=== PATIENT | male | born 1955 | race Caucasian/White ===

== ENCOUNTER 2016-12-24 12:33 | Inpatient (IN) | payer OTHER ==
[~2016-12-24] VITALS: Ht 184.2 cm; Wt 106.4 kg
[2016-12-24 12:51] VITALS: BP 144/68; PULSE 71; RESP 15; TEMP 97.9; O2SAT 95
[2016-12-24] MEDS ORDERED: CLON0.1T PO (13:18)
[2016-12-24] MEDS ORDERED: NOVOLOGP2 SQ (13:18)
[2016-12-24] MEDS ORDERED: AMLO10TA2 PO (13:18)
[2016-12-24] MEDS ORDERED: CALC600T64 (13:18)
[2016-12-24] MEDS ORDERED: LEVO25TA4 PO (13:18)
[2016-12-24] MEDS ORDERED: HYDR-3801 PO (13:18)
[2016-12-24] MEDS ORDERED: INSU1INJ18 SQ (13:18)
[2016-12-24] MEDS ORDERED: CARV25TA PO (13:18)
[2016-12-24] MEDS ORDERED: CARB200T PO (13:18)
[2016-12-24] MEDS ORDERED: REFR0.5D9 EACH EYE (13:18)
[2016-12-24] MEDS ORDERED: LISI40TA PO (13:18)
--- NOTE | 2016-12-24 13:24 | PD ---
HPI Chief Complaint: Dizziness Time Seen by Provider: 13:23 Travel History International Travel<30 days: No Contact w/Intl Traveler<30days: No Traveled to known affect area: No History of Present Illness HPI 61 YO M with PMH of DM, HTN presents to the ED by EMS for evaluation of "months long" history of dizziness, gait disturbance. He describes this as constant, endorses blurred vision and decreased hearing bilaterally. No alleviating or exacerbating factors reported. He denies headache, fever, chills, nausea, vomiting, chest pain, palpitations. Patient states that he fell secondary to his gait disturbance and has a fracture of the left proximal humerus. He states that he smokes marijuana daily and has been abstaining since he came to [place]. PFSH Past Medical History Cerebrovascular Accident: Yes (a couple this year) Diabetes: Yes Patient Takes Glucophage: No Hypertension: Yes Past Surgical History Genitourinary Surgery: Yes (right kindey removal(CA)) Social History Alcohol Use: No Tobacco Use: No Substance Use: Yes (occasional marijuana) Allergies-Medications (Allergen,Severity, Reaction): Coded Allergies: Ibuprofen (Verified Allergy, Severe, 12/24/16) i swell up Reported Meds & Prescriptions Reported Meds & Active Scripts Active Reported Hydralazine (Hydralazine HCl) 100 Mg Tab 100 Mg PO BID Take with meals Amlodipine (Amlodipine Besylate) 10 Mg Tab 10 Mg PO DAILY Clonidine (Clonidine HCl) 0.1 Mg Tab 0.1 Mg PO BID Lisinopril 40 Mg Tab 40 Mg PO DAILY Levothyroxine (Levothyroxine Sodium) 25 Mcg Tab 25 Mcg PO DAILY Novolog Inj (Insulin Aspart) 1,000 Unit/10 Ml Vial 0 SQ DIRECTED Sliding Scale as directed. Carvedilol 25 Mg Tab 25 Mg PO BID Carbamazepine 200 Mg Tab 200 Mg PO BID Calcium 600 + Vit D Tablet (Calcium Carbonate/Vitamin D3) 1 Each Tablet Refresh Plus Unit-Dose 0.5% Opth (Carboxymethylcellulose Sodium 0.5% Opth) 0.5% Drops 1 Drop EACH EYE QID Basaglar Kwikpen (Insulin Glargine) 100 Unit/Ml Pen 1 Units SQ DAILY Review of Systems Except as stated in HPI: all other systems reviewed are Neg Physical Exam Narrative GENERAL: Well-nourished, well-developed pleasant white male in no acute distress. SKIN: Focused skin assessment warm/dry. HEAD: Normocephalic. EYES: No scleral icterus. No injection or drainage. PERRLA. EOMI. NECK: Supple, trachea midline. No JVD or lymphadenopathy. CARDIOVASCULAR: Regular rate and rhythm without murmurs, gallops, or rubs. RESPIRATORY: Breath sounds clear and equal bilaterally. No accessory muscle use. GASTROINTESTINAL: Abdomen soft, non-tender, nondistended. Active bowel sounds. MUSCULOSKELETAL: No cyanosis, or edema. Left arm is in a long-arm cast and splint NEUROLOGICAL: Awake and alert. Cranial nerves II through XII intact. Motor and sensory grossly within normal limits. Five out of 5 muscle strength in all muscle groups. Normal speech. No pronator drift. No ataxia. BACK: Nontender without obvious deformity. No CVA tenderness. Data Data Last Documented VS Vital Signs Date Time Temp Pulse Resp B/P Pulse Ox O2 Delivery O2 Flow Rate FiO2 12/24/16 18:20 74 17 165/85 94 Room Air 12/24/16 12:51 97.9 Orders Complete Blood Count With Diff (12/24/16 13:18) Comprehensive Metabolic Panel (12/24/16 13:18) Iv Access Insert/Monitor (12/24/16 13:18) Urinalysis - C+S If Indicated (12/24/16 13:38) Orthostatic Blood Pressure (12/24/16 13:38) Electrocardiogram (12/24/16 13:38) Magnesium (Mg) (12/24/16 13:38) Ckmb (Isoenzyme) Profile (12/24/16 13:38) Troponin I (12/24/16 13:38) Act Partial Throm Time (Ptt) (12/24/16 13:38) Prothrombin Time / Inr (Pt) (12/24/16 13:38) Chest, Single Ap (12/24/16 13:38) Ct Brain W/O Iv Contrast(Rout) (12/24/16 13:38) Ecg Monitoring (12/24/16 13:38) Oximetry (12/24/16 13:38) Meclizine (Antivert) (12/24/16 13:45) Sodium Chloride 0.9% Flush (Ns Flush) (12/24/16 13:45) Mri Brain W&W/O Contrast (12/24/16 15:26) Lorazepam Inj (Ativan Inj) (12/24/16 17:30) Gadodiamide Pf Inj (Omniscan Pf Inj) (12/24/16 18:08) Sodium Chlor 0.9% 1000 Ml Inj (Ns 1000 M (12/24/16 18:30) Humerus (Min 2vws) (12/24/16 19:28) Diet Heart Healthy (12/25/16 Dinner) Consult Orthopedic (12/24/16 ) Consult Neurology (12/24/16 ) Admit Order (Ed Use Only) (12/24/16 20:39) Labs Laboratory Tests Test 12/24/16 12/24/16 12/24/16 13:20 14:12 16:30 White Blood Count 10.1 TH/MM3 Red Blood Count 4.04 MIL/MM3 Hemoglobin 11.5 GM/DL Hematocrit 33.9 % Mean Corpuscular Volume 83.9 FL Mean Corpuscular Hemoglobin 28.4 PG Mean Corpuscular Hemoglobin 33.8 % Concent Red Cell Distribution Width 14.0 % Platelet Count 264 TH/MM3 Mean Platelet Volume 8.5 FL Neutrophils (%) (Auto) 65.4 % Lymphocytes (%) (Auto) 20.0 % Monocytes (%) (Auto) 11.5 % Eosinophils (%) (Auto) 2.4 % Basophils (%) (Auto) 0.7 % Neutrophils # (Auto) 6.6 TH/MM3 Lymphocytes # (Auto) 2.0 TH/MM3 Monocytes # (Auto) 1.2 TH/MM3 Eosinophils # (Auto) 0.2 TH/MM3 Basophils # (Auto) 0.1 TH/MM3 CBC Comment DIFF FINAL Differential Comment Sodium Level 137 MEQ/L Potassium Level 4.0 MEQ/L Chloride Level 106 MEQ/L Carbon Dioxide Level 23.4 MEQ/L Anion Gap 8 MEQ/L Blood Urea Nitrogen 29 MG/DL Creatinine 1.35 MG/DL Estimat Glomerular Filtration 54 ML/MIN Rate Random Glucose 167 MG/DL Calcium Level 8.8 MG/DL Total Bilirubin 0.3 MG/DL Aspartate Amino Transf 24 U/L (AST/SGOT) Alanine Aminotransferase 55 U/L (ALT/SGPT) Alkaline Phosphatase 94 U/L Total Protein 6.2 GM/DL Albumin 2.8 GM/DL Prothrombin Time 10.7 SEC Prothromb Time International 1.0 RATIO Ratio Activated Partial 25.3 SEC Thromboplast Time Magnesium Level 2.0 MG/DL Total Creatine Kinase 66 U/L Troponin I LESS THAN 0.02 NG/ML Urine Color YELLOW Urine Turbidity CLEAR Urine pH 5.5 Urine Specific [place] 1.020 Urine Protein 30 mg/dL Urine Glucose (UA) NEG mg/dL Urine Ketones NEG mg/dL Urine Occult Blood NEG Urine Nitrite NEG Urine Bilirubin NEG Urine Urobilinogen LESS THAN 2.0 MG/DL Urine Leukocyte Esterase NEG Urine RBC 1 /hpf Urine WBC LESS THAN 1 /hpf Microscopic Urinalysis Comment CULT NOT INDICATED MDM Medical Decision Making Medical Screen Exam Complete: Yes Emergency Medical Condition: Yes Differential Diagnosis TIA versus vertigo versus ischemic stroke versus hemorrhagic stroke versus A. fib versus other Narrative Course 61 YO M with PMH of DM, HTN presents to the ED for evaluation of "months long" history of dizziness, gait disturbance. He describes this as constant, endorses blurred vision and decreased hearing bilaterally. No alleviating or exacerbating factors reported. Patient states that he fell secondary to his gait disturbance and has a fracture of the left proximal humerus. He states that he smokes marijuana daily since the 1960s and has been abstaining since he came to [place]. Vitals reviewed. Physical exam is unremarkable. No focal neuro deficits. CBC: CBC 10.1. Hemoglobin 11.5. CMP: BUN 29, creatinine 1.35. INR 1.0. Magnesium 20. UA: No culture indicated. EKG rate 72, sinus rhythm. Normal intervals. Normal axis. No ST changes. Reviewed by Dr. Craft. Cardiac enzymes negative 1. Chest x-ray negative for acute pathology. X-ray left arm: CT brain: Low density area in the cerebellar hemispheres bilaterally. MRI: Multiple acute and subacute infarcts in the posterior circulation, both cerebellar hemispheres and left occipital lobe The patient is not a precise historian. He does have a MRI report dated 10/24/16 that is similar to today's MRI result. I discussed the patient with Dr. Craft and Dr. Lezama. They recommend admission for TIA with neuro consult. I will also have the orthopedist look at the humeral fracture while the patient's here. I spoke to Dr. Alejandro who agrees to accept the patient to the medicine service. Please see Medicine, Ortho and Neuro notes for disposition. Kori Hawthorne Dec 24, 2016 13:24
[2016-12-24 13:45] VITALS: BP_SYST 166; BP_SYST 168; BP_SYST 169; BP_DIAS 77; BP_DIAS 81; RESP 14; RESP 15
[2016-12-24] MEDS ORDERED: SODIUM CHLORIDE 0.9% FLUSH 10 ML FLUSH IVF PRN (13:45)
[2016-12-24] MEDS ORDERED: MECLIZINE HCL 25 MG TAB PO ONE (13:45)
[2016-12-24 13:51] LABS: AUTOMATED NEUTROPHIL # 6.6 TH/MM3 (1.8-7.7); BASOPHIL # 0.1 TH/MM3 (0-0.2); BASOPHIL % 0.7 % (0.0-2.0); EOSINOPHIL # 0.2 TH/MM3 (0-0.4); EOSINOPHIL % 2.4 % (0.0-4.0); HEMATOCRIT 33.9 % (39.0-51.0); HEMO FLAGS DIFF FINAL; MEAN CELL VOLUME 83.9 FL (80.0-100.0); MEAN CORPUSCULAR HEMOGLOBIN 28.4 PG (27.0-34.0); MEAN CORPUSCULAR HGB CONC 33.8 % (32.0-36.0); MONO % 11.5 % (0.0-8.0); NEUT % 65.4 % (16.0-70.0); PLATELET COUNT 264 TH/MM3 (150-450); RED BLOOD COUNT 4.04 MIL/MM3 (4.50-5.90); WHITE BLOOD COUNT 10.1 TH/MM3 (4.0-11.0)
[2016-12-24 14:11] LABS: ANION GAP 8 MEQ/L (5-15); AST (GOT) 24 U/L (15-37); BICARBONATE 23.4 MEQ/L (21.0-32.0); BLOOD UREA NITROGEN 29 MG/DL (7-18); CHLORIDE 106 MEQ/L (98-107); GLOMERULAR FILTRATION RATE 54 ML/MIN (>89); SODIUM (NA) 137 MEQ/L (136-145)
[2016-12-24 14:12] LABS: ALT (GPT) 55 U/L (12-78)
--- NOTE | 2016-12-24 14:14 | RADRPT ---
EXAM DATE/TIME: 12/24/2016 13:52 [facility] COMPARISON: No previous studies available for comparison. INDICATIONS : Palpitations. MEDICAL HISTORY : 3 strokes SURGICAL HISTORY : None. ENCOUNTER: Initial ACUITY: 1 day PAIN SCORE: 0/10 LOCATION: Bilateral chest FINDINGS: A single view of the chest demonstrates the lungs to be symmetrically aerated without evidence of mas s, infiltrate or effusion. The cardiomediastinal contours are unremarkable. Osseous structures are intact. CONCLUSION: No acute disease. Mehrdad Joshi MD FACR on December 24, 2016 at 14:11 Board Certified Radiologist. This report was verified electronically.
[2016-12-24 14:15] LABS: ALKALINE PHOSPHATASE 94 U/L (45-117); TOTAL BILIRUBIN ADULT 0.3 MG/DL (0.2-1.0)
[2016-12-24 14:33] LABS: APTT (PATIENT) 25.3 SEC (24.3-30.1); PROTHROMBIN TIME - PATIENT 10.7 SEC (9.8-11.6)
[2016-12-24 14:43] LABS: CREATINE KINASE 66 U/L (39-308)
--- NOTE | 2016-12-24 14:44 | RADRPT ---
EXAM DATE/TIME: 12/24/2016 14:28 [facility] COMPARISON: No previous studies available for comparison. INDICATIONS : Blurred vision and dizziness. RADIATION DOSE: 56.35 CTDIvol (mGy) MEDICAL HISTORY : Hypertension. SURGICAL HISTORY : None. ENCOUNTER: Initial ACUITY: 1 day PAIN SCALE: 0/10 LOCATION: cranial TECHNIQUE: Multiple contiguous axial images were obtained of the head. Using automated exposure control and adj ustment of the mA and/or kV according to patient size, radiation dose was kept as low as reasonably a chievable to obtain optimal diagnostic quality images. DICOM format image data is available electro nically for review and comparison. FINDINGS: CEREBRUM: The ventricles are normal for age. No evidence of midline shift, mass lesion, hemorrhage or acute in farction. There is a small old left lacunar infarct in the left basal ganglia. No extra-axial fluid c ollections are seen. POSTERIOR FOSSA: The mid brain is unremarkable. However there appears to be a low-density lesion in the right cerebell ar hemisphere and left cerebellar hemisphere. These may represent areas of old infarction. No definit e mass effect or midline shift is seen. The fourth ventricle is midline in position. EXTRACRANIAL: The visualized portion of the orbits is intact. SKULL: The calvaria is intact. No evidence of skull fracture. CONCLUSION: 1. There are low density areas in the cerebellar hemispheres bilaterally. These may represent old are as of infarction. There are no prior studies for comparison. Recommend MRI of the brain with and with out contrast for further evaluation. 2. There is an old left basal ganglia infarct. 3. No focal or acute intracranial hemorrhage. Jean Carlos Lee MD on December 24, 2016 at 14:39 Board Certified Radiologist. This report was verified electronically.
[2016-12-24 15:00] VITALS: BP 151/66; PULSE 71; RESP 15; O2SAT 94
[2016-12-24 16:00] VITALS: BP 150/79; PULSE 70; RESP 15; O2SAT 94
[2016-12-24 16:48] LABS: BLOOD, URINE NEG (NEG); COMMENT (UR) CULT NOT INDICATED; CULTURE IF INDICATED CULT NOT INDICATED; GLUCOSE,URINE NEG (NEG); KETONE, URINE NEG (NEG); NITRITE,URINE NEG (NEG); PH, URINE 5.5 (5.0-8.5); URINE COLOR YELLOW (YELLW/STRAW)
[2016-12-24] MEDS ORDERED: LORazepam 2 MG/ML VIAL IV PUSH ONE (17:30)
[2016-12-24] MEDS ORDERED: GADODIAMIDE PF 287 MG/ML 5 ML VIAL (for RAD MRI) IV ONE (18:08)
[2016-12-24 18:20] VITALS: BP 165/85; PULSE 74; RESP 17; O2SAT 94
[2016-12-24] MEDS ORDERED: SODIUM CHLOR 0.9% 1000 ML INJ 1,000 ML IV ONE (18:30)
--- NOTE | 2016-12-24 18:48 | RADRPT ---
EXAM DATE/TIME: 12/24/2016 17:47 [facility] COMPARISON: CT BRAIN W/O CONTRAST, December 24, 2016, 14:28. INDICATIONS : Dizziness. Fall this morning. CONTRAST: 22 cc Omniscan (gadodiamide) IV MEDICAL HISTORY : Diabetes mellitus type 2. Hypertension. SURGICAL HISTORY : Right kidney removed and right knee replacement. ENCOUNTER: Initial ACUITY: 1 day PAIN SCORE: 2/10 LOCATION: Head. TECHNIQUE: Multiplanar, multisequence MRI of the brain was performed both prior to and following the administrat ion of paramagnetic contrast. FINDINGS: There are multiple acute infarcts in the posterior circulation. These involve a large portion of the left cerebellar hemisphere. There are also smaller infarcts in the right cerebellar hemisphere and sm all infarcts in the left occipital lobe. No anterior circulation acute infarcts are identified. There is a remote lacunar infarct in left basal ganglia. No abnormal enhancing lesions are seen post contrast other than some mild enhancement associated with the areas of infarction. No mass effect or midline shift. CONCLUSION: 1. Multiple acute to subacute infarcts in the posterior circulation involving both cerebellar hemisph eres and the left occipital lobe. Areas of infarction have some subtle enhancement. No mass effect or shift. Remote lacunar infarct left basal ganglia. Michael Barreto MD on December 24, 2016 at 18:40 Board Certified Radiologist. This report was verified electronically.
--- NOTE | 2016-12-24 20:31 | RADRPT ---
EXAM DATE/TIME: 12/24/2016 19:58 [facility] COMPARISON: No previous studies available for comparison. INDICATIONS : Left arm pain , patient states that he fell and broke humerus. MEDICAL HISTORY : Hypertension. SURGICAL HISTORY : None. ENCOUNTER: Initial ACUITY: 1 day PAIN SCORE: 9/10 LOCATION: Left upper extremity FINDINGS: There is avulsion of the greater tuberosity with mild displacement. There is a slightly comminuted fr acture through the left humeral neck. The mid and distal humerus are intact. CONCLUSION: 1. Slightly comminuted and mildly displaced humeral neck fracture with avulsion of the greater tubero sity. Michael Barreto MD on December 24, 2016 at 20:26 Board Certified Radiologist. This report was verified electronically.
[2016-12-24] MEDS ORDERED: SODIUM CHLORIDE 0.9% FLUSH 5 ML FLUSH IV FLUSH PRN (20:45)
[2016-12-24] MEDS: SODIUM CHLORIDE 0.9% FLUSH 5 ML FLUSH IV FLUSH SCH (21:20)
[2016-12-24 21:22] VITALS: BP 175/78; PULSE 75; RESP 18; TEMP 98.1; O2SAT 99
[2016-12-25] VITALS (8 sets, daily range): BP systolic 179–217; BP diastolic 93–108; PULSE 68–84; RESP 17–18; TEMP 97.7–98.9; O2SAT 94–97
[2016-12-25] MEDS: MORPHINE SULFATE 8 MG/ML INJ IV PUSH PRN ×2 (01:57→06:44)
--- NOTE | 2016-12-25 02:48 | HHI.HP ---
[facility] Admission Diagnosis TIA, dizziness Diagnoses: Chief Complaint: dizziness Travel History International Travel<30 Days: No Contact w/Intl Traveler <30 Da: No Traveled to Known Affected Are: No History of Present Illness Written by CANDIDO Montague acting as scribe for [Javon] on 12/25/16 at 02: 27. 61 y/o male with a history of CVA x 3, HTN, DM, Hypothyroidism, kidney cancer and arthritis recently moved to [place] from [place] in November presented to the ED with complaints of falling at home due to dizziness. He states he was having trouble walking and having episode of dizziness and fell on his left arm 3-4 days ago. He was taking tramadol he had at home and the pain in his left arm did not get better and he continued to be weak and dizzy. He denies any other associated symptoms. Prior to the fall he did not have any chest pain, or sob. He does not take aspirin or anticoagulation since CVA. Denies any swelling or pain in his lower extremities since traveling to [place]. Patient PCP is at the [place] Review of Systems Constitutional: COMPLAINS OF: Dizziness, DENIES: Fever, Chills Respiratory: DENIES: Cough, Shortness of breath Cardiovascular: DENIES: Chest pain, Lower Extremity Edema Gastrointestinal: DENIES: Nausea, Vomiting Genitourinary: DENIES: Hematuria, Dysuria Musculoskeletal: COMPLAINS OF: Joint pain (left arm), DENIES: Back pain, Neck pain Integumentary: DENIES: Rash Hematologic/lymphatic: DENIES: Lymphadenopathy Immunologic/allergic: DENIES: Urticaria Neurologic: DENIES: Headache Past Family Social History Past Medical History CVA x3 Arthritis. HTN DM Asthma Kidney cancer Past Surgical History Right nephrectomy Right knee arthroplasty Reported Medications Reported Meds & Active Scripts Active Reported Hydralazine (Hydralazine HCl) 100 Mg Tab 100 Mg PO BID Take with meals Amlodipine (Amlodipine Besylate) 10 Mg Tab 10 Mg PO DAILY Clonidine (Clonidine HCl) 0.1 Mg Tab 0.1 Mg PO BID Lisinopril 40 Mg Tab 40 Mg PO DAILY Levothyroxine (Levothyroxine Sodium) 25 Mcg Tab 25 Mcg PO DAILY Novolog Inj (Insulin Aspart) 1,000 Unit/10 Ml Vial 0 SQ DIRECTED Sliding Scale as directed. Carvedilol 25 Mg Tab 25 Mg PO BID Carbamazepine 200 Mg Tab 200 Mg PO BID Calcium 600 + Vit D Tablet (Calcium Carbonate/Vitamin D3) 1 Each Tablet Refresh Plus Unit-Dose 0.5% Opth (Carboxymethylcellulose Sodium 0.5% Opth) 0.5% Drops 1 Drop EACH EYE QID Basaglar Kwikpen (Insulin Glargine) 100 Unit/Ml Pen 1 Units SQ DAILY Allergies: Coded Allergies: Ibuprofen (Verified Allergy, Severe, 12/24/16) i swell up Active Ordered Medications Current Medications Medications (Trade) Dose Ordered Sig/Niels Route Start Time Stop Time Status Last Admin (NS Flush) 2 ml BID IV FLUSH 12/24/16 21:00 12/24/16 21:20 (NS Flush) 2 ml UNSCH PRN IV FLUSH 12/24/16 20:45 (Morphine Inj) 2 mg Q3H PRN IV PUSH 12/25/16 02:00 12/25/16 01:57 Social History Tobacco use: Quit at age 27 Alcohol use: Denies Illicit drug use: Medical marijuana Physical Exam Vital Signs Vital Signs Date Time Temp Pulse Resp B/P Pulse Ox O2 Delivery O2 Flow Rate FiO2 12/25/16 01:33 97.7 77 18 201/93 97 12/24/16 21:22 98.1 75 18 175/78 99 Room Air 12/24/16 18:20 74 17 165/85 94 Room Air 12/24/16 16:00 70 15 150/79 94 Room Air 12/24/16 15:00 71 15 151/66 94 Room Air 12/24/16 13:45 73 15 166/81 75 14 168/77 77 15 169/81 12/24/16 12:58 76 15 96 Room Air 12/24/16 12:51 97.9 71 15 144/68 95 Physical Exam GENERAL: This is a well-nourished, well-developed patient, in no apparent distress. SKIN: No rashes, ecchymoses or lesions. Cool and dry. RUE splinted in sling HEAD: Atraumatic. Normocephalic. . EYES: Pupils equal round and reactive. ENT: Nose without bleeding, purulent drainage or septal hematoma. NECK: Trachea midline. No JVD or lymphadenopathy. CARDIOVASCULAR: Regular rate and rhythm without murmurs, gallops, or rubs. RESPIRATORY: Clear to auscultation. Breath sounds equal bilaterally. No wheezes , rales, or rhonchi. GASTROINTESTINAL: Abdomen soft, non-tender, nondistended. No hepato-splenomegaly , or palpable masses. No guarding. MUSCULOSKELETAL: RUE with edema and tenderness. No calf tenderness. NEUROLOGICAL: Awake and alert. Motor and sensory grossly within normal limits. Normal speech. Laboratory Laboratory Tests Test 12/24/16 12/24/16 12/24/16 13:20 14:12 16:30 White Blood Count 10.1 Red Blood Count 4.04 Hemoglobin 11.5 Hematocrit 33.9 Mean Corpuscular Volume 83.9 Mean Corpuscular Hemoglobin 28.4 Mean Corpuscular Hemoglobin 33.8 Concent Red Cell Distribution Width 14.0 Platelet Count 264 Mean Platelet Volume 8.5 Neutrophils (%) (Auto) 65.4 Lymphocytes (%) (Auto) 20.0 Monocytes (%) (Auto) 11.5 Eosinophils (%) (Auto) 2.4 Basophils (%) (Auto) 0.7 Neutrophils # (Auto) 6.6 Lymphocytes # (Auto) 2.0 Monocytes # (Auto) 1.2 Eosinophils # (Auto) 0.2 Basophils # (Auto) 0.1 CBC Comment DIFF FINAL Differential Comment Sodium Level 137 Potassium Level 4.0 Chloride Level 106 Carbon Dioxide Level 23.4 Anion Gap 8 Blood Urea Nitrogen 29 Creatinine 1.35 Estimat Glomerular Filtration 54 Rate Random Glucose 167 Calcium Level 8.8 Total Bilirubin 0.3 Aspartate Amino Transf 24 (AST/SGOT) Alanine Aminotransferase 55 (ALT/SGPT) Alkaline Phosphatase 94 Total Protein 6.2 Albumin 2.8 Prothrombin Time 10.7 Prothromb Time International 1.0 Ratio Activated Partial 25.3 Thromboplast Time Magnesium Level 2.0 Total Creatine Kinase 66 Troponin I LESS THAN 0.02 Urine Color YELLOW Urine Turbidity CLEAR Urine pH 5.5 Urine Specific [place] 1.020 Urine Protein 30 Urine Glucose (UA) NEG Urine Ketones NEG Urine Occult Blood NEG Urine Nitrite NEG Urine Bilirubin NEG Urine Urobilinogen LESS THAN 2.0 Urine Leukocyte Esterase NEG Urine RBC 1 Urine WBC LESS THAN 1 Microscopic Urinalysis Comment CULT NOT INDICATED Result Diagram: 12/24/16 1320 12/24/16 1320 Imaging Last Impressions Humerus X-Ray 12/24/16 1928 Signed Impressions: Service Date/Time: Saturday, December 24, 2016 19:58 - CONCLUSION: 1. Slightly comminuted and mildly displaced humeral neck fracture with avulsion of the greater tuberosity. Michael Barreto MD Brain MRI 12/24/16 1526 Signed Impressions: Service Date/Time: Saturday, December 24, 2016 17:47 - CONCLUSION: 1. Multiple acute to subacute infarcts in the posterior circulation involving both cerebellar hemispheres and the left occipital lobe. Areas of infarction have some subtle enhancement. No mass effect or shift. Remote lacunar infarct left basal ganglia. Michael Barreto MD Head CT 12/24/168 Signed Impressions: Service Date/Time: Saturday, December 24, 2016 14:28 - CONCLUSION: 1. There are low density areas in the cerebellar hemispheres bilaterally. These may represent old areas of infarction. There are no prior studies for comparison. Recommend MRI of the brain with and without contrast for further evaluation. 2. There is an old left basal ganglia infarct. 3. No focal or acute intracranial hemorrhage. Jean Carlos Lee MD Chest X-Ray 12/24/161337 Signed Impressions: Service Date/Time: Saturday, December 24, 2016 13:52 - CONCLUSION: No acute disease. Mehrdad Joshi MD FACR Assessment and Plan Problem List: (1) Humerus fracture ICD Code: S42.309A Status: Acute (2) Unsteady gait ICD Code: R26.81 Status: Acute (3) CVA (cerebral vascular accident) ICD Code: I63.9 Status: Acute Assessment and Plan 61 y/o male with a history of CVA x 3, HTN, DM, Hypothyroidism, kidney cancer and arthritis recently moved to [place] from [place] presented to the ED with complaints of falling at home due to dizziness. He states he was having trouble walking and having episode of dizziness and fell on his left arm 3-4 days ago. Humerus fracture Xray reviewed shows Slightly comminuted and mildly displaced humeral neck fracture with avulsion of the greater tuberosity. -Placed in splint and sling in ED -Ortho consult for recommendations -Pain management with IV morphine CVA acute on chronic Brain MRI reviewed, shows Multiple acute to subacute infarcts in the posterior circulation involving both cerebellar hemispheres and the left occipital lobe. Areas of infarction have some subtle enhancement. No mass effect or shift. Remote lacunar infarct left basal ganglia. -Consult neurology for recommendations -2D ECHO ordered -Barry carotid US -Lipid panel ordered -PT eval -Allow permissive hypertension, hold home BP meds Acute kidney injury Creatine 1.35, unknown baseline -1L bolus given in ED, encourage fluids -BMP in AM DM, chronic -Accu checks with SSI -A1C ordered Seizures, chronic -Cont home Tegretol DVT prophylaxis: SCDs Discussed Condition With Patient Physician Certification 2 Midnight Certification Type: Admission for Inpatient Services Order for Inpatient Services The services are ordered in accordance with Medicare regulations or non- Medicare payer requirements, as applicable. In the case of services not specified as inpatient-only, they are appropriately provided as inpatient services in accordance with the 2-midnight benchmark. Estimated LOS (days): 2 days is the estimated time the patient will need to remain in the hospital, assuming treatment plan goals are met and no additional complications. Post-Hospital Plan: Home Debbie Avilez Dec 25, 2016 02:48
[2016-12-25] MEDS ORDERED: DEXTROSE 50% IN WATER 50 ML VIAL(D50) IV PRN (03:45)
[2016-12-25] MEDS ORDERED: GLUCAGON 1 MG/ML VIAL OTHER PRN (03:45)
[2016-12-25] MEDS: LEVOTHYROXINE SODIUM 25 MCG TAB PO SCH (06:44)
[2016-12-25] MEDS: INSULIN ASPART SUPPLEMENTAL SCALE SQ SCH ×4 (06:46→20:18)
[2016-12-25] MEDS ORDERED: CALCTAB19 PO (07:21)
[2016-12-25] MEDS ORDERED: HYDR-3580 PO (07:21)
[2016-12-25] MEDS ORDERED: ERGO1CAP30 PO (07:21)
[2016-12-25 08:22] LABS: AUTOMATED NEUTROPHIL # 6.2 TH/MM3 (1.8-7.7); BASOPHIL # 0.1 TH/MM3 (0-0.2); BASOPHIL % 0.7 % (0.0-2.0); EOSINOPHIL # 0.3 TH/MM3 (0-0.4); EOSINOPHIL % 2.7 % (0.0-4.0); HEMATOCRIT 39.5 % (39.0-51.0); HEMO FLAGS DIFF FINAL; LYMPH % 21.6 % (9.0-44.0); LYMPHOCYTE # 2.1 TH/MM3 (1.0-4.8); MEAN CELL VOLUME 85.2 FL (80.0-100.0); MEAN CORPUSCULAR HEMOGLOBIN 28.2 PG (27.0-34.0); PLATELET COUNT 255 TH/MM3 (150-450); RED BLOOD COUNT 4.63 MIL/MM3 (4.50-5.90); WHITE BLOOD COUNT 9.8 TH/MM3 (4.0-11.0)
[2016-12-25 08:29] LABS: BICARBONATE 22.5 MEQ/L (21.0-32.0); POTASSIUM 3.9 MEQ/L (3.5-5.1)
[2016-12-25 08:33] LABS: HDL CHOLESTEROL 32.2 MG/DL (40.0-60.0)
[2016-12-25] MEDS: SODIUM CHLOR 0.9% 1000 ML INJ 1,000 ML IV SCH ×2 (08:55→22:57)
[2016-12-25] MEDS: SODIUM CHLORIDE 0.9% FLUSH 5 ML FLUSH IV FLUSH SCH ×2 (09:00→20:18)
--- NOTE | 2016-12-25 09:29 | RADRPT ---
EXAM DATE/TIME: 12/25/2016 08:22 [facility] COMPARISON: No previous studies available for comparison. INDICATIONS : Transient ischemic attack. MEDICAL HISTORY : Hypertension. Carcinoma, renal. CVA. Diabetes. Joint pain. Substance use. SURGICAL HISTORY : Nephrectomy, right. Right knee repair. ENCOUNTER: Initial ACUITY: 2 days PAIN SCORE: 0/10 LOCATION: Bilateral neck PEAK SYSTOLIC VELOCITIES (cm/sec): ICA/CCA RATIO: Right: 1.1 Left: 0.5 ICA: Right: 105 Left: 55 CCA: Right: 97 Left: 104 ECA: Right: 74 Left: 93 VERTEBRAL: Right: 50 antegrade Left: 58 antegrade Elevated flow velocities and ICA/CCA ratios have been found to correlate with increased degrees of vessel stenosis, calculated as percentage of diameter relative to a normal segment of distal ICA/CCA FINDINGS: RIGHT CAROTID: No significant stenosis is visualized. The waveforms are within normal limits. LEFT CAROTID: No significant stenosis is visualized. The waveforms are within normal limits. VERTEBRAL ARTERIES: Antegrade flow is seen in both vertebral arteries. MISCELLANEOUS: None. CONCLUSION: Unremarkable bilateral carotid ultrasound. Jean Carlos Lee MD on December 25, 2016 at 9:25 Board Certified Radiologist. This report was verified electronically.
--- NOTE | 2016-12-25 09:53 | MB ---
cc: WHITNEY RAYMUNDO M.D. DATE OF CONSULTATION 12/25/2016 HISTORY OF PRESENT ILLNESS A 61-year-old right-handed man with a history of hypertension, insulin diabetes, hypercholesterolemia, cancer in his right kidney status post removal 15 years ago, hypothyroidism. He tells me he has had three strokes in the past. Not a very good historian. He says he had strokes 3-5 months ago up in [place] with some intermittent dizziness, fell about three days ago, fractured his left humerus. He was dizzy at that time but other times he has been dizzy and then sometimes not. He had some double vision yesterday he tells me for a brief time. He came in the hospital, was found to have a bilateral cerebellar and left occipital acute infarcts. MEDICATIONS AT HOME 1. Hydralazine. 2. Amlodipine. 3. Clonidine. 4. Lisinopril. 5. Thyroid medicine. 6. Insulin. 7. Carvedilol. 8. Tegretol 200 b.i.d. 9. Calcium. 10. Insulin. 11. Baby aspirin at home every day. ALLERGIES IBUPROFEN. REVIEW OF SYSTEMS He denies any history of A-fib, Coumadin, [place], stent, angioplasty, CABG, hepatic or pulmonary disease, lupus, ulcer, cancer, seizure. SOCIAL HISTORY Nonsmoker or drinker. Lives with his brother. FAMILY HISTORY Positive for cancer in a sister. Negative for seizure or stroke. PHYSICAL EXAMINATION VITAL SIGNS: He has been in sinus rhythm, afebrile, 84, 17, 179/991 to 201/93. NECK: There were no carotid bruits. HEART: Regular rhythm. I do not detect a murmur. ABDOMEN: He is somewhat obese. NEUROLOGICAL EXAMINATION: Pupils are equally. Visual rosario are full. Extraocular movements intact without nystagmus. Face is symmetric. Tongue with normal station. Tongue was midline. There is no drift on the right. He has got the cast on the left. He had normal strength in upper and lower extremities bilaterally except I could not test the proximal aspect of the left upper extremity into the cast. Toes are downgoing bilaterally. DTRs are trace throughout. Vibratory sense is diminished at the ankle bilaterally. Pinprick is slight diminished in the feet but otherwise symmetric throughout including the left hand in all three nerve distributions and normal in the face. He is not ataxic on [id number]. Speech is fluent. He is not aphasic. No apparent distress. LABORATORY DATA CBC is normal. UA was negative. Basic metabolic profile essentially unremarkable. Hemoglobin A1c is 9, magnesium 2, CPK, troponin, LFTs normal. Albumin is 2.8. Cholesterol is 154 with an LDL of 90. IMAGING STUDIES MRI of the brain as noted above. No hemorrhage was seen. CHEST X-RAY Negative. BRAIN MRI He also has a smaller old left deep frontal infarct, periventricular but two small acute left occipital infarctions noted on the MRI along with a smattering of infarcts, more so in the left cerebellum on the right, no hemorrhage was noted. IMPRESSION Bilateral cerebellar infarcts and left occipital lobe infarcts and embolism to the top of the basilar certainly could be considered. Occult A-fib or other cardiac problems could also be considered. PLAN 1. We are going to do a stroke workup and may consider coumadinization. 2. We will check a Tegretol level on him. MD SRIRAM Leger/SIMRAN /8:57 AM /9:39 AM
[2016-12-25] MEDS: ACETAMINOPHEN/HYDROcodone 325 MG/7.5 MG TAB PO PRN ×2 (09:57→15:54)
[2016-12-25] MEDS: carBAMazepine 200 MG TAB PO SCH ×2 (09:57→20:15)
[2016-12-25] MEDS: CARBOXYMETHYLCELL SOD 0.5% OPTH SOLN 15 ML BTL EACH EYE SCH ×4 (09:59→20:15)
--- NOTE | 2016-12-25 10:22 | PD.ORT.PN ---
Subjective Subjective Remarks Consult dictated Patient with fall and home due to dizziness and gait instability he complained of left upper extremity pain. X-rays show a left proximal humerus fracture minimally displaced. He has no other complaints Objective Vitals Vital Signs Date Time Temp Pulse Resp B/P Pulse Ox O2 Delivery O2 Flow Rate FiO2 12/25/16 08:15 94 21 12/25/16 08:00 98.9 84 17 179/99 94 12/25/16 06:02 98.6 71 18 197/98 97 12/25/16 01:33 97.7 77 18 201/93 97 12/24/16 21:22 98.1 75 18 175/78 99 Room Air 12/24/16 18:20 74 17 165/85 94 Room Air 12/24/16 16:00 70 15 150/79 94 Room Air 12/24/16 15:00 71 15 151/66 94 Room Air 12/24/16 13:45 73 15 166/81 75 14 168/77 77 15 169/81 12/24/16 12:58 76 15 96 Room Air 12/24/16 12:51 97.9 71 15 144/68 95 I/O 12/24/16 12/24/16 12/24/16 12/25/16 12/25/16 12/25/16 07:00 15:00 23:00 07:00 15:00 23:00 Intake Total 1000 ml Balance 1000 ml Intake IV Total 1000 ml # Voids 1 Result Diagram: 12/25/16 0734 12/25/16 0734 Other Results Laboratory Tests Test 12/24/16 14:12 Prothrombin Time 10.7 SEC (9.8-11.6) Prothromb Time International 1.0 RATIO Ratio Imaging Last 24 hours Impressions Carotid Artery Ultrasound 12/25/16 0000 Signed Impressions: Service Date/Time: December 08:22 - CONCLUSION: Unremarkable bilateral carotid ultrasound. Jean Carlos Lee MD Humerus X-Ray 12/24/16 192 Signed Impressions: Service Date/Time: Saturday, December 24, 2016 19:58 - CONCLUSION: 1. Slightly comminuted and mildly displaced humeral neck fracture with avulsion of the greater tuberosity. Michael Barreto MD Brain MRI 12/24/16 1526 Signed Impressions: Service Date/Time: Saturday, December 24, 2016 17:47 - CONCLUSION: 1. Multiple acute to subacute infarcts in the posterior circulation involving both cerebellar hemispheres and the left occipital lobe. Areas of infarction have some subtle enhancement. No mass effect or shift. Remote lacunar infarct left basal ganglia. Michael Barreto MD Head CT 12/24/167 Signed Impressions: Service Date/Time: Saturday, December 24, 2016 14:28 - CONCLUSION: 1. There are low density areas in the cerebellar hemispheres bilaterally. These may represent old areas of infarction. There are no prior studies for comparison. Recommend MRI of the brain with and without contrast for further evaluation. 2. There is an old left basal ganglia infarct. 3. No focal or acute intracranial hemorrhage. Jean Carlos Lee MD Chest X-Ray 12/24/161337 Signed Impressions: Service Date/Time: Saturday, December 24, 2016 13:52 - CONCLUSION: No acute disease. Mehrdad Joshi MD FACR Objective Remarks Bilateral lower extremities: Full range of motion neurovascularly intact. Distally intact sensation good capillary refills is strong dorsiflexion plantar flexion of foot. Right upper extremity: Full range of motion and neurovascularly intact Left upper extremity: Pain to palpation of her proximal humerus. Moderate bruising and mild swelling. Mild pain to palpation over elbow. Distally intact sensation over the radial ulnar median nerve distributions with good capillary refills. He is able fully extend his fingers and make a fist Assessment & Plan Problem List: (1) Humerus fracture Assessment and Plan Minimally displaced left proximal humerus fracture At this point alignment is acceptable and we'll continue to treat this nonoperatively. Splint will be removed and he will be fitted for a sling and swath by [employer]. Left upper extremity will continue to be nonweightbearing and remain in sling and swath at all times. No range of motion to the shoulder will be performed. Follow-up x-rays will be obtained and 10-14 days to assess continued alignment of fracture. Patient understands if he uses this arm or bears any weight with the left upper extremity he could displace the fracture and could necessitate surgical intervention. Physical therapy will continue to work with him with gait training and assess discharge planning.. He is cleared from orthopedic standpoint for discharge plan David Joseph Jr. Dec 25, 2016 10:22
--- NOTE | 2016-12-25 10:30 | HHI.PR ---
Subjective Remarks f/u fro CVA Patient stated his vision improved. He also stated he walked with PT in AM and he felt very unsteady on his feet. unsure if this is stable. Denied any other focal neurological deficits. Patient stated he takes a baby ASA at home and is on a simvastatin, but this was not on his med list. Objective Vitals Vital Signs Date Time Temp Pulse Resp B/P Pulse Ox O2 Delivery O2 Flow Rate FiO2 12/25/16 08:15 94 21 12/25/16 08:00 98.9 84 17 179/99 94 12/25/16 06:02 98.6 71 18 197/98 97 12/25/16 01:33 97.7 77 18 201/93 97 12/24/16 21:22 98.1 75 18 175/78 99 Room Air 12/24/16 18:20 74 17 165/85 94 Room Air 12/24/16 16:00 70 15 150/79 94 Room Air 12/24/16 15:00 71 15 151/66 94 Room Air 12/24/16 13:45 73 15 166/81 75 14 168/77 77 15 169/81 12/24/16 12:58 76 15 96 Room Air 12/24/16 12:51 97.9 71 15 144/68 95 I/O 12/24/16 12/24/16 12/24/16 12/25/16 12/25/16 12/25/16 07:00 15:00 23:00 07:00 15:00 23:00 Intake Total 1000 ml Balance 1000 ml Intake IV Total 1000 ml # Voids 1 Result Diagram: 12/25/16 0734 12/25/16 0734 Imaging Last Impressions Carotid Artery Ultrasound 12/25/16 0000 Signed Impressions: Service Date/Time: December 08:22 - CONCLUSION: Unremarkable bilateral carotid ultrasound. Jean Carlos Lee MD Humerus X-Ray 12/24/16 1928 Signed Impressions: Service Date/Time: Saturday, December 24, 2016 19:58 - CONCLUSION: 1. Slightly comminuted and mildly displaced humeral neck fracture with avulsion of the greater tuberosity. Michael Barreto MD Brain MRI 12/24/16 1526 Signed Impressions: Service Date/Time: Saturday, December 24, 2016 17:47 - CONCLUSION: 1. Multiple acute to subacute infarcts in the posterior circulation involving both cerebellar hemispheres and the left occipital lobe. Areas of infarction have some subtle enhancement. No mass effect or shift. Remote lacunar infarct left basal ganglia. Michael Barreto MD Head CT 12/24/16 3070 Signed Impressions: Service Date/Time: Saturday, December 24, 2016 14:28 - CONCLUSION: 1. There are low density areas in the cerebellar hemispheres bilaterally. These may represent old areas of infarction. There are no prior studies for comparison. Recommend MRI of the brain with and without contrast for further evaluation. 2. There is an old left basal ganglia infarct. 3. No focal or acute intracranial hemorrhage. Jean Carlos Lee MD Chest X-Ray 12/24/16 5633 Signed Impressions: Service Date/Time: Saturday, December 24, 2016 13:52 - CONCLUSION: No acute disease. Mehrdad Joshi MD FACR Objective Remarks GENERAL: in NAD CARDIOVASCULAR: Regular rate and rhythm without murmurs, gallops, or rubs. RESPIRATORY: Breath sounds equal bilaterally. No accessory muscle use. GASTROINTESTINAL: Abdomen soft, non-tender, nondistended. MUSCULOSKELETAL: 5 out of 5 lower extremity strength. BACK: Nontender without obvious deformity. No CVA tenderness. NEURO: AAO X 3 but seems to be slow in response. CN 2-12 intact. Motor and sensation grossly intact. Did not assess gait due to patient feeling unsteady on his feet. Medications and IVs Current Medications Meclizine HCl (Antivert) 50 mg ONCE ONCE PO Last administered on 12/24/16 14: 17; Start 12/24/16 at 13:45; Stop 12/24/16 at 13:46; Status DC Sodium Chloride (NS Flush) 2 ml UNSCH PRN IVF FLUSH AFTER USING IV ACCESS; Start 12/24/16 at 13:45; Stop 12/24/16 at 21:14; Status DC Lorazepam (Ativan Inj) 2 mg ONCE ONCE IV PUSH Last administered on 12/24/16 17 :35; Start 12/24/16 at 17:30; Stop 12/24/16 at 17:31; Status DC Gadodiamide 22 ml 22 ml STK-MED ONCE IV Last administered on 12/24/16 18:08; Start 12/24/16 at 18:08; Stop 12/24/16 at 18:09; Status DC Sodium Chloride (NS 1000 ml Inj) 1,000 ml @ 999 mls/hr BOLUS ONCE IV Last administered on 12/24/16 19:09; Start 12/24/16 at 18:30; Stop 12/24/16 at 19:30; Status DC IV Flush (NS Flush) 2 ml BID IV FLUSH Last administered on 12/25/16 09:00; Start 12/24/16 at 21:00 IV Flush (NS Flush) 2 ml UNSCH PRN IV FLUSH FLUSH AFTER USING IV ACCESS; Start 12/24/16 at 20:45 Morphine Sulfate (Morphine Inj) 2 mg Q3H PRN IV PUSH pain >5 Last administered on 12/25/16 06:44; Start 12/25/16 at 02:00 Carbamazepine (TEGretol) 200 mg BID PO Last administered on 12/25/16 09:57; Start 12/25/16 at 09:00 Carboxymethylcellulose Sodium (Refresh Tears 0.5% Opth Soln) 1 drop QID EACH EYE ; Start 12/25/16 at 09:00 Levothyroxine Sodium (Synthroid) 25 mcg DAILY@07 PO Last administered on 06:44; Start 12/25/16 at 07:00 Dextrose (D50w (Vial) Inj) 50 ml UNSCH PRN IV HYPOGLYCEMIA-SEE COMMENTS; Start 12/25/16 at 03:45 Glucagon (Glucagon Inj) 1 mg UNSCH PRN OTHER HYPOGLYCEMIA-SEE COMMENTS; Start 12/25/16 at 03:45 Insulin Aspart (NovoLOG SUPPLEMENTAL SCALE) 1 ACHS SLIDING SCALE SQ ; Start 12/25/16 at 07:00 Acetaminophen/ Hydrocodone Bitart 1 tab 1 tab Q4H PRN PO PAIN SCALE 4 TO 10 Last administered on 12/25/16 09:57; Start 12/25/16 at 07:30 Sodium Chloride (NS 1000 ml Inj) 1,000 ml @ 75 mls/hr [id number] IV Last administered on 12/25/16 08:55; Start 12/25/16 at 08:55 A/P Problem List: (1) Humerus fracture ICD Code: S42.309A Status: Acute (2) Unsteady gait ICD Code: R26.81 Status: Acute (3) CVA (cerebral vascular accident) ICD Code: I63.9 Status: Acute Assessment and Plan 61 y/o male with a history of CVA x 3, HTN, DM, Hypothyroidism, kidney cancer and arthritis visual changes and unsteady gait Acute to subacute infarcts in the posterior circulation involving both cerebellar hemispheres and the left occipital lobe -History of remote lacunar infarct -Questionable cardiac source. -Neurologist consulted in doing a stroke workup. Carotid ultrasound negative. Pending echo. LDL 90. -Patient has been taking a baby aspirin. Will start at the moment aspirin 325 mg by mouth daily. He most likely will need to be anti-coagulated. -Continue to allow permissive hypertension. LDL is 90 but no statin and med rec , despite patient tell me that he is on simvastatin. Will have patient's nurse confirm this. -Continue with PT/OT Humerus fracture -Xray reviewed shows Slightly comminuted and mildly displaced humeral neck fracture with avulsion of the greater tuberosity. -Portal consulted and stated to continue with nonoperative treatment. Per Ortho splint will be removed and he will be fitted for a sling and swath by [employer]. Left upper extremity will continue to be nonweightbearing and remain in sling and swath at all times. No range of motion to the shoulder will be performed. -Follow-up x-rays will be obtained and 10-14 days -Ortho cleared patient. Hypertension -Blood pressure medication held due to CVA. See treatment as above. Acute kidney injury -Creatine 1.35, unknown baseline -Resolved with fluids. DM, chronic -Accu checks with SSI -A1C ordered Seizures, chronic -Cont home Tegretol -Tegretol level ordered. DVT prophylaxis: SCDs . Multiple acute to subacute infarcts in the posterior circulation involving both cerebellar hemispheres and the left occipital lobe. Areas of infarction have some subtle enhancement. No mass effect or shift. Remote lacunar infarct left basal ganglia. Discharge Planning disposition hospital course. Judy Coreas MD Dec 25, 2016 10:30
[2016-12-25 11:21] LABS: HEMOGLOBIN A1a 1.2 %; HEMOGLOBIN Ao 82.4 %; HEMOGLOBIN LA1C 2.2 %; HEMOGLOBIN P3 6.2 %
[2016-12-25 12:04] LABS: FREE T4 1.13 NG/DL (0.76-1.46)
--- NOTE | 2016-12-25 12:17 | MB ---
cc: RAYMOND CORDOVA DATE OF CONSULTATION 12/25/2016 DATE OF ADMISSION 12/24/2016 REASON FOR ADMISSION TIA and dizziness. CONSULTING PHYSICIAN Aleena Hawthorne PA-C REASON FOR CONSULTATION Left proximal humerus fracture. HISTORY OF PRESENT ILLNESS Cuong is a 61-year-old male who has a history of CVA x 3, hypertension, diabetes, hypothyroidism, kidney cancer and arthritis. He complains that he has had episodes of dizziness and has had gait instability. He fell in his house approximately 3 or 4 days ago and felt that maybe she just bruised the shoulder. He has continued to have significant pain in the shoulder and having difficulty using it and was evaluated at the [facility]. X-ray showed a minimally displaced proximal humerus fracture and consultation for orthopedics as well as medical admission to evaluate dizziness, syncope and gait instability to follow. REVIEW OF SYSTEMS He denies fever, chills, cough, shortness of breath, chest pain, lower extremity edema, nausea, vomiting, hematuria, dysuria, back pain, neck pain, rash, lymphadenopathy, urticaria, headache but does complain of dizziness and left upper extremity pain. PAST MEDICAL HISTORY 1. CVA x 3. 2. Arthritis. 3. Hypertension. 4. Diabetes. 5. Asthma. 6. Kidney cancer. PAST SURGICAL HISTORY 1. Right nephrectomy. 2. Right knee arthroplasty. REPORTED MEDICATIONS 1. Hydralazine. 2. Amlodipine. 3. Clonidine. 4. Lisinopril. 5. Levothyroxine. 6. NovoLog. 7. Carvedilol. 8. Carbamazepine. 9. Calcium and Vitamin D. 10. Basaglar KwikPen which is insulin glargine. ALLERGIES IBUPROFEN. SOCIAL HISTORY Quit smoking approximately 30 years ago. Did smoke medical marijuana before moving to [place]. Alcohol - States he denies alcohol and quit approximately 30 years ago as well. PHYSICAL EXAMINATION VITAL SIGNS: Temperature is 98.9 with a pulse of 84, respiratory rate is 17, blood pressure is 179/99 with a pulse oximetry of 94 on room air. GENERAL: Cuong is a 61-year-old male who appears to be well-nourished and in no acute distress. He is alert and oriented to person, place and time. SKIN: No rashes. Cool and dry but does have bruising over the left shoulder. HEAD: Atraumatic, normocephalic. EYES: The pupils are equal and react to light and accommodation with extraocular movements that are intact. ENT: Nose without bleeding, purulent drainage or septal hematoma. NECK: Trachea is midline with no lymphadenopathy. CARDIOVASCULAR: Regular rate and rhythm. RESPIRATORY: No wheezing or accessory muscle use. GASTROINTESTINAL: Abdomen is soft, nondistended. MUSCULOSKELETAL: Examination of the right upper extremity reveals no pain with range of motion of shoulder, elbow or wrist. He has intact sensation distally with good capillary refills. He can fully extend his fingers and make a fist. Examination of the bilateral lower extremities reveals no decreased range of motion or pain with motion of the hip, knee or ankle. He has intact sensation distally with good capillary refills. He has strong dorsiflexion and plantar flexion of both feet. He is able to stand but does have gait instability. Examination of the left upper extremity reveals pain to palpation over proximal humerus. He has a long-arm splint in place. He has minimal pain to palpation over the elbow. He has intact sensation distally over the radial, ulnar and median nerve distributions with good capillary refills. He is able to extend his fingers and make a fist. His 5/5 painter ski edge strength but has pain and ecchymosis over the proximal humerus. NEUROLOGICAL: Is awake, alert and answers questions appropriately. LABORATORY FINDINGS White blood cell count of 9.8, hemoglobin is 13 with hematocrit of 39.9. Coagulation - INR 1.0 with PT of 10.7 and APTT of 25.3. Urine appears to be clean and clear with no signs of infection but does have a high protein count. BUN is high at 20. IMAGING STUDIES X-rays of the left proximal humerus are obtained on 12/24/2016 which show a minimally displaced proximal humerus fracture. It does not show any fractures at the elbow with the distal humerus, proximal ulna or radial head. The glenohumeral joint is concentrically reduced. ASSESSMENT Minimally displaced left proximal humerus fracture. PLAN At this point the fracture continues to maintain position and is acceptable. No surgical intervention is needed at this time. We will have the splint removed and he will be fitted for a sling and swath. He will avoid any weightbearing on the left upper extremity and avoid any range of motion. Follow-up x-rays need to be obtained in 10-14 days to evaluate fracture alignment. The patient understands that if he does use the arm both for weightbearing or for repositioning or do any active motion, he risks the chance of displacement. If the fracture displaces, surgical intervention may be necessary. From an orthopedic standpoint, we will continue to follow and once safe and cleared by physical therapy and medical, discharge to home will be attempted. The patient's x-rays and plan as well as clinical evaluation is reviewed and agreed with by Dr. Cordova and will continue to follow in office with myself. Thank you for the consultation. Dictated by: Edil Joseph, Physician Financial Analyst I also saw and examined this patient. History, past medical history, social history, review of systems, physical exam, radiographs, assessment, and plan were also reviewed. Plan on nonoperative treatment. A mid-level provider in my office (nurse practitioner or physician teachers assistant) may see this patient on follow-up visits and continue to implement the objectives of this plan including : Starting or adjusting medications, injections, cast application, orthotics, brace application, physical therapy, radiological studies (including x-ray, MRI , CT, ultrasound, bone scan), vascular studies, neurologic studies, specialist consultation, and proceeding with surgical management, as appropriate. MD VARUN Paiz/SIMRAN /11:05 AM /12:19 PM [email or web address]
[2016-12-25 14:53] LABS: AMPHETAMINE, URINE NEG (NEG); BARBITURATES, URINE NEG (NEG); COCAINE, URINE NEG (NEG)
[2016-12-25] MEDS: ASPIRIN 325 MG TAB PO SCH (17:15)
[2016-12-25] MEDS ORDERED: LORazepam 1 MG TAB PO SCH (17:15)
--- NOTE | 2016-12-25 17:39 | EKG ---
Date Performed: 12/24/2016 Time Performed: 14:13:38 PTAGE: 61 years EKG: Sinus rhythm NORMAL ECG NO PREVIOUS TRACING DOCTOR: Tammi Guillory Interpretating Date/Time 12/25/2016 17:36:04
--- NOTE | 2016-12-25 19:06 | ECHRPT ---
Indication: CVA/TIA CONCLUSIONS Technically limited study. Normal left ventricular size and wall thickness. The left ventricular sy stolic function is grossly normal. Regional wall motion abnormalities cannot be excluded. Moderate mitral annular calcification. No mitral valve stenosis or regurgitation. BP: 179 / 99 HR: 84 Rhythm: Sinus Technical Quality:Very technically difficult study FINDINGS LEFT VENTRICLE Normal left ventricular size and wall thickness. The left ventricular systolic function is grossly normal. Regional wall motion abnormalities cannot be excluded. RIGHT VENTRICLE Normal right ventricular size and systolic function. LEFT ATRIUM The left atrial size is normal. RIGHT ATRIUM The right atrial size is normal. ATRIAL SEPTUM Normal atrial septal thickness without atrial level shunting by limited color doppler interrogation. AORTA The aortic root and proximal ascending aorta are normal in size on limited imaging. MITRAL VALVE Moderate mitral annular calcification. No mitral valve stenosis or regurgitation. AORTIC VALVE Trileaflet aortic valve. No aortic valve stenosis or regurgitation. TRICUSPID VALVE Structurally normal tricuspid valve. No tricuspid valve stenosis or regurgitation. PULMONARY VALVE The pulmonary valve is not well visualized. VESSELS The inferior vena cava is normal in size. PERICARDIUM No pericardial effusion. Tacho White MD (Electronically Signed) Final Date:25 December 2016 19:06
[2016-12-25] MEDS ORDERED: GADODIAMIDE PF 287 MG/ML 20 ML VIAL (for RAD MRI) IV ONE (23:04)
--- NOTE | 2016-12-25 23:08 | RADRPT ---
EXAM DATE/TIME: 12/25/2016 21:07 [facility] COMPARISON: MRI BRAIN W & W/O CONTRAST, December 24, 2016, 17:47. INDICATIONS : CVA. MEDICAL HISTORY : Hypertension. Diabetes. SURGICAL HISTORY : Nephrectomy, right. Right knee. ENCOUNTER: Subsequent ACUITY: 2 day PAIN SCORE: 3/10 LOCATION: cranial Please note a normal MRA of the brain does not entirely exclude the possibility of a small aneurysm, nor the possibility of distal intracranial vessel disease. TECHNIQUE: 3D time of flight MRA was performed. Source images, multiplanar STS MIP, and 3D volume MIP reconstru ctions were reviewed. FINDINGS: There is intact flow to the anterior and middle cerebral arteries bilaterally. No evidence of vessel truncation. No flow seen in the anterior communicating artery. The posterior circulation, the basilar artery is normal in dimension. Both superior cerebellar arter ies demonstrate flow and are symmetric in appearance. The left posterior cerebral artery is normal i n configuration. There is tapering of flow in the right posterior cerebral artery approximately 7 mm from the origin. No distal reconstitution seen. There is a minimal amount of flow seen in the post erior cerebral arteries bilaterally. CONCLUSION: Truncated flow in the right posterior cerebral artery after the 1st turn. Minimal flow in bilateral PCOM. Jayme Miller MD on December 25, 2016 at 23:01 Board Certified Radiologist. This report was verified electronically.
--- NOTE | 2016-12-25 23:10 | RADRPT ---
EXAM DATE/TIME: 12/25/2016 21:07 [facility] COMPARISON: No previous studies available for comparison. INDICATIONS : Stroke. CONTRAST: 20 cc Omniscan (gadodiamide) IV MEDICAL HISTORY : Hypertension. Diabetes. SURGICAL HISTORY : Nephrectomy, right. Right knee. ENCOUNTER: Subsequent ACUITY: 2 day PAIN SCORE: 3/10 LOCATION: cranial Percent stenosis is calculated using the diameter of the stenotic region over the diameter of the nor mal distal internal carotid artery. TECHNIQUE: Bolus infused MRA of the extracranial circulation was performed using a neurovascular coil. Post pro cessing was performed including rotating subvolume maximum intensity projections of each carotid jose ry, rotating full volume maximum intensity projections of both carotid arteries, sagittal and coronal sliding thin slab reformations of each carotid artery, and left oblique sliding thin slab reformatio n through the aortic arch to include the origin of the arch branch vessels. FINDINGS: AORTIC ARCH: There is a three vessel origin of the great vessels from the aorta. No evidence of ostial narrowing. RIGHT CAROTID: The common carotid artery is intact. The carotid bulb has a normal configuration without ulceration or narrowing. The internal carotid artery lumen is smooth without stenosis. The external carotid ar michell is intact. LEFT CAROTID: The common carotid artery is intact. The carotid bulb has a normal configuration without ulceration or narrowing. The internal carotid artery lumen is smooth without stenosis. The external carotid ar michell is intact. VERTEBRALS: Vertebral system is left dominant. No stenotic lesions seen. CONCLUSION: Negative MRA of the carotids. Jayme Miller MD on December 25, 2016 at 23:05 Board Certified Radiologist. This report was verified electronically.
[2016-12-26] VITALS (9 sets, daily range): BP systolic 130–209; BP diastolic 56–100; PULSE 61–88; RESP 18–20; TEMP 96.8–98.9; O2SAT 95–99
[2016-12-26] MEDS: ACETAMINOPHEN/HYDROcodone 325 MG/7.5 MG TAB PO PRN ×5 (01:26→20:57)
[2016-12-26] MEDS: LEVOTHYROXINE SODIUM 25 MCG TAB PO SCH (06:49)
[2016-12-26] MEDS: INSULIN ASPART SUPPLEMENTAL SCALE SQ SCH ×4 (06:53→21:01)
--- NOTE | 2016-12-26 07:20 | PD.ORT.PN ---
Subjective Subjective Remarks Cuong is awake and alert. Has some left shoulder pain with movement. Pain improved with rest. Objective Vitals Vital Signs Date Time Temp Pulse Resp B/P Pulse Ox O2 Delivery O2 Flow Rate FiO2 12/25/16 20:00 97.7 82 18 209/100 97 12/25/16 16:39 15 12/25/16 16:00 98.4 68 18 202/108 95 12/25/16 15:00 74 12/25/16 12:00 98.1 75 18 217/101 96 12/25/16 08:15 94 21 12/25/16 08:00 98.9 84 17 179/99 94 I/O 12/25/16 12/25/16 12/25/16 12/26/16 12/26/16 12/26/16 07:00 15:00 23:00 07:00 15:00 23:00 Intake Total 580 ml Balance 580 ml Intake Oral 580 ml # Voids 2 # Bowel Movements 1 Result Diagram: 12/25/16 0734 12/25/16 0734 Imaging Last 24 hours Impressions Carotid Artery Ultrasound 12/25/16 0000 Signed Impressions: Service Date/Time: December 08:22 - CONCLUSION: Unremarkable bilateral carotid ultrasound. Jean Carlos Lee MD Humerus X-Ray 12/24/16 1928 Signed Impressions: Service Date/Time: Saturday, December 24, 2016 19:58 - CONCLUSION: 1. Slightly comminuted and mildly displaced humeral neck fracture with avulsion of the greater tuberosity. Michael Barreto MD Brain MRI 12/24/16 1526 Signed Impressions: Service Date/Time: Saturday, December 24, 2016 17:47 - CONCLUSION: 1. Multiple acute to subacute infarcts in the posterior circulation involving both cerebellar hemispheres and the left occipital lobe. Areas of infarction have some subtle enhancement. No mass effect or shift. Remote lacunar infarct left basal ganglia. Michael Barreto MD Head CT 12/24/16 1338 Signed Impressions: Service Date/Time: Saturday, December 24, 2016 14:28 - CONCLUSION: 1. There are low density areas in the cerebellar hemispheres bilaterally. These may represent old areas of infarction. There are no prior studies for comparison. Recommend MRI of the brain with and without contrast for further evaluation. 2. There is an old left basal ganglia infarct. 3. No focal or acute intracranial hemorrhage. Jean Carlos Lee MD Chest X-Ray 12/24/16 1525 Signed Impressions: Service Date/Time: Saturday, December 24, 2016 13:52 - CONCLUSION: No acute disease. Mehrdad Joshi MD FACR Objective Remarks Right upper extremity: Full range of motion and neurovascularly intact Left upper extremity: Pain to palpation of her proximal humerus. Moderate bruising and mild swelling. Mild pain to palpation over elbow. Distally intact sensation over the radial ulnar median nerve distributions with good capillary refills. He is able fully extend his fingers and make a fist Bilateral lower extremities: Full range of motion neurovascularly intact. Distally intact sensation good capillary refills is strong dorsiflexion plantar flexion of foot. Assessment & Plan Problem List: (1) Humerus fracture Assessment and Plan Minimally displaced left proximal humerus fracture At this point alignment is acceptable and we'll continue to treat this nonoperatively. Left upper extremity will continue to be nonweightbearing and remain in sling and swath at all times. No range of motion to the shoulder will be performed. Follow-up x-rays will be obtained and 10-14 days to assess fracture. Patient understands if he uses this arm or bears any weight with the left upper extremity he could displace the fracture and could necessitate surgical intervention. Physical therapy will continue to work with him with gait training and assess discharge planning.. He is cleared from orthopedic standpoint for discharge plan Raji Seymour MD Dec 26, 2016 07:20
--- NOTE | 2016-12-26 08:08 | HHI.PR ---
Objective Vital Signs Date Time Temp Pulse Resp B/P Pulse Ox O2 Delivery O2 Flow Rate FiO2 12/25/16 20:00 97.7 82 18 209/100 97 12/25/16 16:39 15 12/25/16 16:00 98.4 68 18 202/108 95 12/25/16 15:00 74 12/25/16 12:00 98.1 75 18 217/101 96 12/25/16 08:15 94 21 I/O 12/25/16 12/25/16 12/25/16 12/26/16 12/26/16 12/26/16 07:00 15:00 23:00 07:00 15:00 23:00 Intake Total 580 ml Balance 580 ml Intake Oral 580 ml # Voids 2 # Bowel Movements 1 Result Diagram: 12/25/16 0734 12/25/16 0734 Objective Remarks awake pupil = no nystag vff face sym 5/5 t/o Assessment and Plan Assessment and Plan imp bilat cbllr and left occ cva he has left vert lone artery and there looks like sign distal left vert stenosis or clot check cta could consider stent echo neg ldl ok esr 60 fu labs and holter fu tlel he does not know why he is on cbz level ok Alo García MD Dec 26, 2016 08:08
[2016-12-26] MEDS: SODIUM CHLORIDE 0.9% FLUSH 5 ML FLUSH IV FLUSH SCH ×2 (09:00→21:00)
[2016-12-26] MEDS: CARBOXYMETHYLCELL SOD 0.5% OPTH SOLN 15 ML BTL EACH EYE SCH ×4 (09:00→21:00)
[2016-12-26] MEDS: carBAMazepine 200 MG TAB PO SCH ×2 (09:23→20:57)
[2016-12-26] MEDS: ASPIRIN 325 MG TAB PO SCH (09:23)
[2016-12-26 10:23] LABS: RAPID PLASMA REAGIN SCREEN NON-REACTIVE (NON-REACTVE)
[2016-12-26] MEDS ORDERED: IODIXANOL 320 MG/ML 10 ML VIAL (for Rad CT) IV ONE (11:15)
[2016-12-26] MEDS: SODIUM CHLOR 0.9% 1000 ML INJ 1,000 ML IV SCH (11:35)
--- NOTE | 2016-12-26 12:37 | RADRPT ---
EXAM DATE/TIME: 12/26/2016 10:50 [facility] COMPARISON: No previous studies available for comparison. INDICATIONS : Left vertebral artery stenosis. IV CONTRAST: 46 cc Visipaque (iodixanol) IV ; Cumulative dose for multiple exams. RADIATION DOSE: 15.03 CTDIvol (mGy) ; Combined studies MEDICAL HISTORY : Hypertension. Diabetes mellitus type 2. SURGICAL HISTORY : Nephrectomy, right. ENCOUNTER: Initial ACUITY: 2 days PAIN SCALE: 0/10 LOCATION: cranial TECHNIQUE: Volumetric scanning was performed using a multi-row detector CT scanner. The data was post processed with a variety of visualization algorithms including full volume maximum intensity projection, multi -planar sliding thin slab reformation, curved planar reformation, and surface rendering techniques. Using automated exposure control and adjustment of the mA and/or kV according to patient size, radiat ion dose was kept as low as reasonably achievable to obtain optimal diagnostic quality images. DICO M format image data is available electronically for review and comparison. FINDINGS: There is moderate intracranial atherosclerotic vascular disease. Calcific stenosis is again seen in the left vertebral artery. CONCLUSION: Stenosis distal left vertebral with moderate intracranial atherosclerotic vascular disease. Mehrdad Joshi MD FACR on December 26, 2016 at 12:34 Board Certified Radiologist. This report was verified electronically.
--- NOTE | 2016-12-26 12:42 | RADRPT ---
EXAM DATE/TIME: 12/26/2016 10:50 [facility] COMPARISON: MRI BRAIN W & W/O CONTRAST, December 24, 2016, 17:47. MRA BRAIN W/O CONTRAST, December 25, 2016, 21:07. INDICATIONS : Left vertebral artery stenosis. IV CONTRAST: 46 cc Visipaque (iodixanol) IV ; Cumulative dose for multiple exams. RADIATION DOSE: 15.03 CTDIvol (mGy) ; Combined studies MEDICAL HISTORY : Hypertension. Diabetes mellitus type 2. SURGICAL HISTORY : Nephrectomy, right. ENCOUNTER: Initial ACUITY: 2 days PAIN SCALE: 0/10 LOCATION: neck Elevated flow velocities and ICA/CCA ratios have been found to correlate with increased degrees of vessel stenosis, calculated as percentage of diameter relative to a normal segment of distal ICA/CCA. TECHNIQUE: Volumetric scanning was performed using a multirow detector CT scanner. The data was post processed with a variety of visualization algorithms including full-volume maximum intensity projection, multip lanar sliding thin-slab reformation, curved-planar reformation, and surface-rendering techniques. Us ing automated exposure control and adjustment of the mA and/or kV according to patient size, radiatio n dose was kept as low as reasonably achievable to obtain optimal diagnostic quality images. DICOM f ormat image data is available electronically for review and comparison. FINDINGS: AORTIC ARCH: There is a three-vessel origin of the great vessels from the aorta. No evidence of ostial narrowing. RIGHT CAROTID: The common carotid artery is intact. The carotid bulb has a normal configuration without ulceration o r narrowing. The internal carotid artery lumen is smooth without stenosis. The external carotid jose ry is intact. LEFT CAROTID: The common carotid artery is intact. The carotid bulb has a normal configuration without ulceration or narrowing. The internal carotid artery lumen is smooth without stenosis. The external carotid ar michell is intact. VERTEBRALS: CTA confirms the focal stenosis distal left vertebral containing calcification. The right vertebral is small and diminutive and appears to end in PICA. CONCLUSION: Negative for carotid stenosis. Calcific left vertebral stenosis with a very diminutive small right v ertebral artery. Mehrdad Joshi MD FACR on December 26, 2016 at 12:36 Board Certified Radiologist. This report was verified electronically.
[2016-12-26 13:20] LABS: RHEUMATOID FACTOR TRIGGER LESS THAN 10.0 IU/ML (0.0-14.9)
--- NOTE | 2016-12-26 14:05 | HHI.PR ---
Subjective Remarks Follow-up for CVA. Patient stated that he continues to feel unsteady on his feet. He does not feel comfortable walking by himself. Deny any other focal neurological deficits. He stated that his vision goes in and out. No other complaints. Objective Vitals Vital Signs Date Time Temp Pulse Resp B/P Pulse Ox O2 Delivery O2 Flow Rate FiO2 12/26/16 12:00 96.8 83 18 135/90 95 12/26/16 09:39 88 12/26/16 08:00 96.8 79 18 185/99 96 12/26/16 04:00 98.9 61 18 130/56 98 12/26/16 00:00 97.7 82 18 209/100 97 12/25/16 20:00 97.7 82 18 209/100 97 12/25/16 16:39 15 12/25/16 16:00 98.4 68 18 202/108 95 12/25/16 15:00 74 I/O 12/25/16 12/25/16 12/25/16 12/26/16 12/26/16 12/26/16 07:00 15:00 23:00 07:00 15:00 23:00 Intake Total 580 ml 0 ml Balance 580 ml 0 ml Intake Oral 580 ml IV Total 0 ml # Voids 2 10 # Bowel Movements 1 5 Result Diagram: 12/25/1634 12/25/16 0734 Imaging Last Impressions Neck CTA 12/26/16 0000 Signed Impressions: Service Date/Time: Monday, December 26, 2016 10:50 - CONCLUSION: Negative for carotid stenosis. Calcific left vertebral stenosis with a very diminutive small right vertebral artery. Mehrdad Joshi MD FACR Head CTA 12/26/16 0000 Signed Impressions: Service Date/Time: Monday, December 26, 2016 10:50 - CONCLUSION: Stenosis distal left vertebral with moderate intracranial atherosclerotic vascular disease. Mehrdad Joshi MD FACR Neck Magnetic Resonance Angiography 12/25/1655 Signed Impressions: Service Date/Time: December 21:07 - CONCLUSION: Negative MRA of the carotids. Jayme Miller MD Head Magnetic Resonance Angiography 12/25/1655 Signed Impressions: Service Date/Time: December 21:07 - CONCLUSION: Truncated flow in the right posterior cerebral artery after the 1st turn. Minimal flow in bilateral PCOM. Jayme Miller MD Carotid Artery Ultrasound 12/25/16 0000 Signed Impressions: Service Date/Time: December 08:22 - CONCLUSION: Unremarkable bilateral carotid ultrasound. Jean Carlos Lee MD Humerus X-Ray 12/24/16 1928 Signed Impressions: Service Date/Time: Saturday, December 24, 2016 19:58 - CONCLUSION: 1. Slightly comminuted and mildly displaced humeral neck fracture with avulsion of the greater tuberosity. Michael Barreto MD Brain MRI 12/24/16 1526 Signed Impressions: Service Date/Time: Saturday, December 24, 2016 17:47 - CONCLUSION: 1. Multiple acute to subacute infarcts in the posterior circulation involving both cerebellar hemispheres and the left occipital lobe. Areas of infarction have some subtle enhancement. No mass effect or shift. Remote lacunar infarct left basal ganglia. Michael Barreto MD Head CT 12/24/16 1338 Signed Impressions: Service Date/Time: Saturday, December 24, 2016 14:28 - CONCLUSION: 1. There are low density areas in the cerebellar hemispheres bilaterally. These may represent old areas of infarction. There are no prior studies for comparison. Recommend MRI of the brain with and without contrast for further evaluation. 2. There is an old left basal ganglia infarct. 3. No focal or acute intracranial hemorrhage. Jean Carlos Lee MD Chest X-Ray 12/24/16 1338 Signed Impressions: Service Date/Time: Saturday, December 24, 2016 13:52 - CONCLUSION: No acute disease. Mehrdad Joshi MD FACR Objective Remarks GENERAL: in NAD CARDIOVASCULAR: Regular rate and rhythm without murmurs, gallops, or rubs. RESPIRATORY: Breath sounds equal bilaterally. No accessory muscle use. GASTROINTESTINAL: Abdomen soft, non-tender, nondistended. MUSCULOSKELETAL: 5 out of 5 lower extremity strength. BACK: Nontender without obvious deformity. No CVA tenderness. NEURO: AAO X 3 but seems to be slow in response. CN 2-12 intact. Motor and sensation grossly intact. Did not assess gait due to patient feeling unsteady on his feet. Medications and IVs Current Medications Meclizine HCl (Antivert) 50 mg ONCE ONCE PO Last administered on 12/24/16 14: 17; Start 12/24/16 at 13:45; Stop 12/24/16 at 13:46; Status DC Sodium Chloride (NS Flush) 2 ml UNSCH PRN IVF FLUSH AFTER USING IV ACCESS; Start 12/24/16 at 13:45; Stop 12/24/16 at 21:14; Status DC Lorazepam (Ativan Inj) 2 mg ONCE ONCE IV PUSH Last administered on 12/24/16 17 :35; Start 12/24/16 at 17:30; Stop 12/24/16 at 17:31; Status DC Gadodiamide 22 ml 22 ml STK-MED ONCE IV Last administered on 12/24/16 18:08; Start 12/24/16 at 18:08; Stop 12/24/16 at 18:09; Status DC Sodium Chloride (NS 1000 ml Inj) 1,000 ml @ 999 mls/hr BOLUS ONCE IV Last administered on 12/24/16 19:09; Start 12/24/16 at 18:30; Stop 12/24/16 at 19:30; Status DC IV Flush (NS Flush) 2 ml BID IV FLUSH Last administered on 12/26/16 09:00; Start 12/24/16 at 21:00 IV Flush (NS Flush) 2 ml UNSCH PRN IV FLUSH FLUSH AFTER USING IV ACCESS; Start 12/24/16 at 20:45 Morphine Sulfate (Morphine Inj) 2 mg Q3H PRN IV PUSH pain >5 Last administered on 12/25/16 06:44; Start 12/25/16 at 02:00 Carbamazepine (TEGretol) 200 mg BID PO Last administered on 12/26/16 09:23; Start 12/25/16 at 09:00 Carboxymethylcellulose Sodium (Refresh Tears 0.5% Opth Soln) 1 drop QID EACH EYE ; Start 12/25/16 at 09:00 Levothyroxine Sodium (Synthroid) 25 mcg DAILY@07 PO Last administered on 06:49; Start 12/25/16 at 07:00 Dextrose (D50w (Vial) Inj) 50 ml UNSCH PRN IV HYPOGLYCEMIA-SEE COMMENTS; Start 12/25/16 at 03:45 Glucagon (Glucagon Inj) 1 mg UNSCH PRN OTHER HYPOGLYCEMIA-SEE COMMENTS; Start 12/25/16 at 03:45 Insulin Aspart (NovoLOG SUPPLEMENTAL SCALE) 1 ACHS SLIDING SCALE SQ Last administered on 12/26/16 11:00; Start 12/25/16 at 07:00 Acetaminophen/ Hydrocodone Bitart 1 tab 1 tab Q4H PRN PO PAIN SCALE 4 TO 10 Last administered on 12/26/16 11:20; Start 12/25/16 at 07:30 Sodium Chloride (NS 1000 ml Inj) 1,000 ml @ 75 mls/hr [id number] IV Last administered on 12/25/16 22:57; Start 12/25/16 at 08:55 Aspirin (Aspirin) 325 mg DAILY PO Last administered on 12/26/16 09:23; Start at 17:15 Enalaprilat (Vasotec Inj) 1.25 mg Q6H PRN IV PUSH SBP>220 or DBP>120; Start at 13:00 Lorazepam (Ativan) 1 mg UNSCH X1 PO Last administered on 12/25/16 20:14; Start 12/25/16 at 17:15; Stop 12/25/16 at 23:59; Status DC Gadodiamide (Omniscan Pf Inj) 20 ml STK-MED ONCE IV Last administered on 23:04; Start 12/25/16 at 23:04; Stop 12/25/16 at 23:05; Status DC Iodixanol (VISIPAQUE 320 INJ (Rad CT)) 46 ml STK-MED ONCE IV Last administered on 12/26/16 11:15; Start 12/26/16 at 11:15; Stop 12/26/16 at 11:16; Status DC A/P Problem List: (1) Humerus fracture ICD Code: S42.309A Status: Acute (2) Unsteady gait ICD Code: R26.81 Status: Acute (3) CVA (cerebral vascular accident) ICD Code: I63.9 Status: Acute Assessment and Plan 61 y/o male with a history of CVA x 3, HTN, DM, Hypothyroidism, kidney cancer and arthritis visual changes and unsteady gait Acute to subacute infarcts in the posterior circulation involving both cerebellar hemispheres and the left occipital lobe -History of remote lacunar infarct -Questionable cardiac source. -Neurologist consulted in doing a stroke workup. Carotid ultrasound negative. Echo reviewed and grossly normal. LDL 90. -Patient has been taking a baby aspirin. On aspirin 325 mg. Per neurologist he most likely will need to be anti-coagulated. -Continue to allow permissive hypertension. LDL is 90 but no statin and med rec , despite patient tell me that he is on simvastatin. He stated he is having his brother bring all his medication and.. -MRA showed truncated flow in the right posterior cerebral artery after the 1st turn. Minimal flow in bilateral PCOM. -CTA of the neck showed Calcific left vertebral stenosis with a very diminutive small right vertebral artery. -CTA of the brain showed stenosis distal left vertebral with moderate intracranial atherosclerotic vascular disease. -Per neurologist patient may need a stent. -PT recommended rehabilitation versus home health if he has help. Patient stated that he has no health and does not feel comfortable going home. Humerus fracture -Xray reviewed shows Slightly comminuted and mildly displaced humeral neck fracture with avulsion of the greater tuberosity. -Portal consulted and stated to continue with nonoperative treatment. Per Ortho splint will be removed and he will be fitted for a sling and swath by [employer]. Left upper extremity will continue to be nonweightbearing and remain in sling and swath at all times. No range of motion to the shoulder will be performed. -Follow-up x-rays will be obtained and 10-14 days -Ortho cleared patient. Hypertension -Blood pressure medication held due to CVA. See treatment as above. Acute kidney injury -Creatine 1.35, unknown baseline -Resolved with fluids. DM, chronic -Accu checks with SSI -A1C ordered Seizures, chronic -Cont home Tegretol -Tegretol level ordered. DVT prophylaxis: SCDs . Discharge Planning Patient may need a stent placement pending hospital course. Judy Coreas MD Dec 26, 2016 14:05
[2016-12-26 15:52] LABS: ANA SCREEN NEG (NEG)
[2016-12-26 21:16] LABS: ALBUMIN SPE 3.58 GM/DL (3.50-5.00); ALPHA 1 GLOBULIN 0.23 GM/DL (0.11-0.29); ALPHA 2 GLOBULIN 1.04 GM/DL (0.22-1.00); BETA GLOBULINS (SPE) 0.86 GM/DL (0.53-1.03)
[2016-12-27] VITALS (8 sets, daily range): BP systolic 123–214; BP diastolic 84–101; PULSE 54–90; RESP 18–20; TEMP 96.3–97.8; O2SAT 94–98
[2016-12-27] MEDS: SODIUM CHLOR 0.9% 1000 ML INJ 1,000 ML IV SCH ×3 (00:55→12:30)
[2016-12-27] MEDS: ACETAMINOPHEN/HYDROcodone 325 MG/7.5 MG TAB PO PRN ×6 (01:23→22:13)
[2016-12-27] MEDS: INSULIN ASPART SUPPLEMENTAL SCALE SQ SCH ×4 (06:24→22:13)
[2016-12-27] MEDS: LEVOTHYROXINE SODIUM 25 MCG TAB PO SCH (06:24)
[2016-12-27] MEDS: CARBOXYMETHYLCELL SOD 0.5% OPTH SOLN 15 ML BTL EACH EYE SCH ×4 (09:00→20:44)
[2016-12-27] MEDS: SODIUM CHLORIDE 0.9% FLUSH 5 ML FLUSH IV FLUSH SCH ×2 (09:00→20:43)
[2016-12-27] MEDS: carBAMazepine 200 MG TAB PO SCH ×2 (09:51→20:43)
[2016-12-27] MEDS: ASPIRIN 325 MG TAB PO SCH (09:51)
--- NOTE | 2016-12-27 11:29 | HHI.FF ---
Face to Face Verification Diagnosis: (1) CVA (cerebral vascular accident) (2) Unsteady gait (3) Humerus fracture Physical Therapy Order: Evaluate and Treat, Improve ambulation, Strength and gait training Occupational Therapy Order: Evaluate and Treat, Improve ADL, Gross motor coordination, Fine motor coordination Home Health Nursing Order: Medical education Signs/symptoms of disease process I have seen patient Cuong Ascencio on 12/27/16. My clinical findings support the need for the requested home health care services because: High risk of falls I certify that my clinical findings support that this patient is homebound because: Unsteady gait/balance Judy Coreas MD Dec 27, 2016 11:29
--- NOTE | 2016-12-27 11:52 | HHI.PR ---
Subjective Remarks f/u for CVA patient stated he feels better but still unsteady on his feet but that has improved. he stated that he rather go home now than a SNF. he stated that he has his brother and sister in law 12/01 and that they are able to care for him. Patient denied any other focal neurological deficit. he stated he feels better. Objective Vitals Vital Signs Date Time Temp Pulse Resp B/P Pulse Ox O2 Delivery O2 Flow Rate FiO2 12/27/16 09:51 18 12/27/16 08:05 96.3 82 20 170/96 97 12/27/16 08:00 80 12/27/16 04:00 97.7 77 18 206/101 94 12/27/16 00:00 97.0 54 18 123/84 97 12/26/16 20:00 97.0 84 18 137/87 99 12/26/16 18:00 97.8 74 20 98 12/26/16 17:53 168/78 12/26/16 15:36 86 12/26/16 12:00 96.8 83 18 135/90 95 I/O 12/26/16 12/26/16 12/26/16 12/27/16 12/27/16 12/27/16 07:00 15:00 23:00 07:00 15:00 23:00 Intake Total 500 ml Output Total 300 ml Balance 500 ml -300 ml IV Total 500 ml Output Urine Total 300 ml # Voids 10 10 # Bowel Movements 5 2 Result Diagram: 12/25/16 0734 12/25/16 0734 Imaging Last Impressions Neck CTA 12/26/16 0000 Signed Impressions: Service Date/Time: Monday, December 26, 2016 10:50 - CONCLUSION: Negative for carotid stenosis. Calcific left vertebral stenosis with a very diminutive small right vertebral artery. Mehrdad Joshi MD FACR Head CTA 12/26/16 0000 Signed Impressions: Service Date/Time: Monday, December 26, 2016 10:50 - CONCLUSION: Stenosis distal left vertebral with moderate intracranial atherosclerotic vascular disease. Mehrdad Joshi MD FACR Neck Magnetic Resonance Angiography 12/25/16 0855 Signed Impressions: Service Date/Time: December 21:07 - CONCLUSION: Negative MRA of the carotids. Jayme Miller MD Head Magnetic Resonance Angiography 12/25/16 0855 Signed Impressions: Service Date/Time: December 21:07 - CONCLUSION: Truncated flow in the right posterior cerebral artery after the 1st turn. Minimal flow in bilateral PCOM. Jayme Miller MD Carotid Artery Ultrasound 12/25/16 0000 Signed Impressions: Service Date/Time: December 08:22 - CONCLUSION: Unremarkable bilateral carotid ultrasound. Jean Carlos Lee MD Humerus X-Ray 12/24/16 1928 Signed Impressions: Service Date/Time: Saturday, December 24, 2016 19:58 - CONCLUSION: 1. Slightly comminuted and mildly displaced humeral neck fracture with avulsion of the greater tuberosity. Michael Barreto MD Brain MRI 12/24/16 1526 Signed Impressions: Service Date/Time: Saturday, December 24, 2016 17:47 - CONCLUSION: 1. Multiple acute to subacute infarcts in the posterior circulation involving both cerebellar hemispheres and the left occipital lobe. Areas of infarction have some subtle enhancement. No mass effect or shift. Remote lacunar infarct left basal ganglia. Michael Barreto MD Head CT 12/24/16 1338 Signed Impressions: Service Date/Time: Saturday, December 24, 2016 14:28 - CONCLUSION: 1. There are low density areas in the cerebellar hemispheres bilaterally. These may represent old areas of infarction. There are no prior studies for comparison. Recommend MRI of the brain with and without contrast for further evaluation. 2. There is an old left basal ganglia infarct. 3. No focal or acute intracranial hemorrhage. Jean Carlos Lee MD Chest X-Ray 12/24/16 1338 Signed Impressions: Service Date/Time: Saturday, December 24, 2016 13:52 - CONCLUSION: No acute disease. Mehrdad Joshi MD FACR Objective Remarks GENERAL: in NAD CARDIOVASCULAR: Regular rate and rhythm without murmurs, gallops, or rubs. RESPIRATORY: Breath sounds equal bilaterally. No accessory muscle use. GASTROINTESTINAL: Abdomen soft, non-tender, nondistended. MUSCULOSKELETAL: 5 out of 5 lower extremity strength. BACK: Nontender without obvious deformity. No CVA tenderness. NEURO: AAO X 3 but seems to be slow in response. CN 2-12 intact. Motor and sensation grossly intact. Medications and IVs Current Medications Meclizine HCl (Antivert) 50 mg ONCE ONCE PO Last administered on 12/24/16 14: 17; Start 12/24/16 at 13:45; Stop 12/24/16 at 13:46; Status DC Sodium Chloride (NS Flush) 2 ml UNSCH PRN IVF FLUSH AFTER USING IV ACCESS; Start 12/24/16 at 13:45; Stop 12/24/16 at 21:14; Status DC Lorazepam (Ativan Inj) 2 mg ONCE ONCE IV PUSH Last administered on 12/24/16 17 :35; Start 12/24/16 at 17:30; Stop 12/24/16 at 17:31; Status DC Gadodiamide 22 ml 22 ml STK-MED ONCE IV Last administered on 12/24/16 18:08; Start 12/24/16 at 18:08; Stop 12/24/16 at 18:09; Status DC Sodium Chloride (NS 1000 ml Inj) 1,000 ml @ 999 mls/hr BOLUS ONCE IV Last administered on 12/24/16 19:09; Start 12/24/16 at 18:30; Stop 12/24/16 at 19:30; Status DC IV Flush (NS Flush) 2 ml BID IV FLUSH Last administered on 12/27/16 09:00; Start 12/24/16 at 21:00 IV Flush (NS Flush) 2 ml UNSCH PRN IV FLUSH FLUSH AFTER USING IV ACCESS; Start 12/24/16 at 20:45 Morphine Sulfate (Morphine Inj) 2 mg Q3H PRN IV PUSH pain >5 Last administered on 12/25/16 06:44; Start 12/25/16 at 02:00 Carbamazepine (TEGretol) 200 mg BID PO Last administered on 12/27/16 09:51; Start 12/25/16 at 09:00 Carboxymethylcellulose Sodium (Refresh Tears 0.5% Opth Soln) 1 drop QID EACH EYE ; Start 12/25/16 at 09:00 Levothyroxine Sodium (Synthroid) 25 mcg DAILY@07 PO Last administered on 06:24; Start 12/25/16 at 07:00 Dextrose (D50w (Vial) Inj) 50 ml UNSCH PRN IV HYPOGLYCEMIA-SEE COMMENTS; Start 12/25/16 at 03:45 Glucagon (Glucagon Inj) 1 mg UNSCH PRN OTHER HYPOGLYCEMIA-SEE COMMENTS; Start 12/25/16 at 03:45 Insulin Aspart (NovoLOG SUPPLEMENTAL SCALE) 1 ACHS SLIDING SCALE SQ Last administered on 12/27/16 06:24; Start 12/25/16 at 07:00 Acetaminophen/ Hydrocodone Bitart 1 tab 1 tab Q4H PRN PO PAIN SCALE 4 TO 10 Last administered on 12/27/16 10:26; Start 12/25/16 at 07:30 Sodium Chloride (NS 1000 ml Inj) 1,000 ml @ 75 mls/hr [id number] IV Last administered on 12/25/16 22:57; Start 12/25/16 at 08:55 Aspirin (Aspirin) 325 mg DAILY PO Last administered on 12/27/16 09:51; Start at 17:15 Enalaprilat (Vasotec Inj) 1.25 mg Q6H PRN IV PUSH SBP>220 or DBP>120; Start at 13:00 Lorazepam (Ativan) 1 mg UNSCH X1 PO Last administered on 12/25/16 20:14; Start 12/25/16 at 17:15; Stop 12/25/16 at 23:59; Status DC Gadodiamide (Omniscan Pf Inj) 20 ml STK-MED ONCE IV Last administered on 23:04; Start 12/25/16 at 23:04; Stop 12/25/16 at 23:05; Status DC Iodixanol (VISIPAQUE 320 INJ (Rad CT)) 46 ml STK-MED ONCE IV Last administered on 12/26/16 11:15; Start 12/26/16 at 11:15; Stop 12/26/16 at 11:16; Status DC A/P Problem List: (1) Humerus fracture ICD Code: S42.309A Status: Acute (2) Unsteady gait ICD Code: R26.81 Status: Acute (3) CVA (cerebral vascular accident) ICD Code: I63.9 Status: Acute Assessment and Plan 61 y/o male with a history of CVA x 3, HTN, DM, Hypothyroidism, kidney cancer and arthritis visual changes and unsteady gait Acute to subacute infarcts in the posterior circulation involving both cerebellar hemispheres and the left occipital lobe -History of remote lacunar infarct -Questionable cardiac source. -Neurologist ff. Carotid ultrasound negative. Echo reviewed and grossly normal. LDL 90 and is taking simvastatin at him. -Patient has been taking a baby aspirin. On aspirin 325 mg. Per neurologist he most likely will need to be anti-coagulated. -MRA showed truncated flow in the right posterior cerebral artery after the 1st turn. Minimal flow in bilateral PCOM. -CTA of the neck showed Calcific left vertebral stenosis with a very diminutive small right vertebral artery. -CTA of the brain showed stenosis distal left vertebral with moderate intracranial atherosclerotic vascular disease. -Per neurologist patient may need a stent. Humerus fracture -Xray reviewed shows Slightly comminuted and mildly displaced humeral neck fracture with avulsion of the greater tuberosity. -Portal consulted and stated to continue with nonoperative treatment. Per Ortho splint will be removed and he will be fitted for a sling and swath by [employer]. Left upper extremity will continue to be nonweightbearing and remain in sling and swath at all times. No range of motion to the shoulder will be performed. -Follow-up x-rays will be obtained and 10-14 days -Ortho cleared patient. Hypertension -Blood pressure labile. Acute kidney injury -Creatine 1.35, unknown baseline -Resolved with fluids. DM, chronic -Accu checks with SSI -A1C 7. Seizures, chronic -Cont home Tegretol -Tegretol level ordered. DVT prophylaxis: SCDs . Discharge Planning Patient may need a stent placement will discuss with his neurologist. Judy Coreas MD Dec 27, 2016 11:52
[2016-12-27 13:13] LABS: BICARBONATE 25.8 MEQ/L (21.0-32.0); POTASSIUM 4.4 MEQ/L (3.5-5.1)
--- NOTE | 2016-12-27 16:53 | HHI.PR ---
Review/Management Diagnosis bilateral cerebellar strokes, left occipital stroke, stenotic left vertebral artery Plan continue asa for now. Would add coumadin in next 2-3 days due to possibility of basilar artery atherosclerosis. Due to large size of the left cerebellar infarct , would wait 2-3 days to start coumadin as at this point, there is a significant risk of hemorrhagic conversion . Diagnosis/Plan: Subjective Subjective Comments No acute events reported Active Medications Current Medications Medications (Trade) Dose Ordered Sig/Niels Route Start Time Stop Time Status Last Admin (NS Flush) 2 ml BID IV FLUSH 12/24/16 21:00 12/27/16 09:00 (NS Flush) 2 ml UNSCH PRN IV FLUSH 12/24/16 20:45 (Morphine Inj) 2 mg Q3H PRN IV PUSH 12/25/16 02:00 12/25/16 06:44 (TEGretol) 200 mg BID PO 12/25/16 09:00 12/27/16 09:51 (Refresh Tears 0.5% Opth Soln) 1 drop QID EACH EYE 12/25/16 09:00 (D50w (Vial) Inj) 50 ml UNSCH PRN IV 12/25/16 03:45 (Glucagon Inj) 1 mg UNSCH PRN OTHER 12/25/16 03:45 Acetaminophen/ Hydrocodone Bitart 1 tab 1 tab Q4H PRN PO 12/25/16 07:30 12/27/16 14:45 (NS 1000 ml Inj) 1,000 ml @ 75 mls/hr [id number] IV 12/25/16 08:55 12/25/16 22:57 (Aspirin) 325 mg DAILY PO 12/25/16 17:15 12/27/16 09:51 (Vasotec Inj) 1.25 mg Q6H PRN IV PUSH 12/25/16 13:00 (Pravachol) 80 mg HS PO 12/27/16 21:00 (Neurontin) 300 mg BID PO 12/27/16 21:00 (Synthroid) 25 mcg DAILY@0600 PO 12/28/16 06:00 Allergies Allergies Coded Allergies Ibuprofen (Verified Allergy, Severe, 12/24/16) Exam I&O / VS 12/26/16 12/26/16 12/27/16 15:00 23:00 07:00 Intake Total 500 ml Output Total 300 ml Balance 500 ml -300 ml IV Total 500 ml Output Urine Total 300 ml # Voids 10 # Bowel Movements 2 Vital Signs Date Time Temp Pulse Resp B/P Pulse Ox O2 Delivery O2 Flow Rate FiO2 12/27/16 16:46 97.1 86 20 203/93 98 12/27/16 15:00 85 12/27/16 12:54 97.0 80 20 186/101 97 12/27/16 12:29 18 12/27/16 08:05 96.3 82 20 170/96 97 12/27/16 08:00 80 12/27/16 04:00 97.7 77 18 206/101 94 12/27/16 00:00 97.0 54 18 123/84 97 12/26/16 20:00 97.0 84 18 137/87 99 12/26/16 18:00 97.8 74 20 98 12/26/16 17:53 168/78 Exam Comments alert, oriented, speech normal CN intact MOTOR 5/5 RUE. Not able to test LUE 5/5 BLE Objective Micro and Labs Laboratory Tests Test 12/27/16 12:31 Sodium Level 135 Potassium Level 4.4 Chloride Level 103 Carbon Dioxide Level 25.8 Anion Gap 6 Blood Urea Nitrogen 23 Creatinine 1.06 Estimat Glomerular Filtration 71 Rate Random Glucose 261 Calcium Level 8.9 Augie Dinh PhD Dec 27, 2016 16:53
[2016-12-27] MEDS: GABAPENTIN 300 MG CAP PO SCH (20:43)
[2016-12-27] MEDS: PRAVASTATIN SOD 80 MG TAB PO SCH (20:43)
[2016-12-27] MEDS: ENALAPRILAT 1.25 MG/ML VIAL IV PUSH PRN (20:43)
[2016-12-28] VITALS (8 sets, daily range): BP systolic 170–213; BP diastolic 88–109; PULSE 71–83; RESP 18–20; TEMP 96.5–98.1; O2SAT 96–99
[2016-12-28] MEDS: ACETAMINOPHEN/HYDROcodone 325 MG/7.5 MG TAB PO PRN ×6 (02:20→22:18)
[2016-12-28] MEDS: SODIUM CHLOR 0.9% 1000 ML INJ 1,000 ML IV SCH ×2 (03:35→16:55)
[2016-12-28] MEDS: LEVOTHYROXINE SODIUM 25 MCG TAB PO SCH (06:12)
[2016-12-28] MEDS: INSULIN ASPART SUPPLEMENTAL SCALE SQ SCH ×4 (06:16→21:00)
[2016-12-28] MEDS: CARBOXYMETHYLCELL SOD 0.5% OPTH SOLN 15 ML BTL EACH EYE SCH ×4 (07:56→21:00)
[2016-12-28] MEDS: ENALAPRILAT 1.25 MG/ML VIAL IV PUSH PRN (08:07)
[2016-12-28] MEDS: carBAMazepine 200 MG TAB PO SCH ×2 (08:07→22:19)
[2016-12-28] MEDS: SODIUM CHLORIDE 0.9% FLUSH 5 ML FLUSH IV FLUSH SCH ×2 (08:07→21:00)
[2016-12-28] MEDS: GABAPENTIN 300 MG CAP PO SCH ×2 (08:07→22:19)
[2016-12-28] MEDS: ASPIRIN 325 MG TAB PO SCH (08:07)
[2016-12-28] MEDS: LISINOPRIL 20 MG TAB PO SCH (11:32)
--- NOTE | 2016-12-28 11:42 | HHI.PR ---
Subjective Remarks Follow-up for CVA Patient stated that he walked with PT yesterday and felt little more confident with his ambulation. He stated that he still needed assistance. Denied any other focal neurological deficits. Patient feels like he is doing better every day. Objective Vitals Vital Signs Date Time Temp Pulse Resp B/P Pulse Ox O2 Delivery O2 Flow Rate FiO2 12/28/16 08:14 96.5 71 20 213/96 96 12/28/16 08:00 73 12/28/16 07:55 18 12/28/16 04:00 98.1 78 20 186/109 96 12/28/16 00:00 97.0 83 20 170/100 97 12/27/16 20:00 97.8 90 20 214/99 96 12/27/16 20:00 80 12/27/16 16:46 97.1 86 20 203/93 98 12/27/16 15:00 85 12/27/16 12:54 97.0 80 20 186/101 97 I/O 12/27/16 12/27/16 12/27/16 12/28/16 12/28/16 12/28/16 07:00 15:00 23:00 07:00 15:00 23:00 Intake Total 1080 ml 120 ml Output Total 300 ml 1250 ml 800 ml Balance -300 ml -170 ml -680 ml Intake Oral 1080 ml 120 ml Output Urine Total 300 ml 1250 ml 800 ml # Voids 10 2 # Bowel Movements 2 0 0 Result Diagram: 12/25/16 0734 12/27/16 1231 Objective Remarks GENERAL: in NAD CARDIOVASCULAR: Regular rate and rhythm without murmurs, gallops, or rubs. RESPIRATORY: Breath sounds equal bilaterally. No accessory muscle use. GASTROINTESTINAL: Abdomen soft, non-tender, nondistended. MUSCULOSKELETAL: 5 out of 5 lower extremity strength. BACK: Nontender without obvious deformity. No CVA tenderness. NEURO: AAO X 3 and responding quicker. CN 2-12 intact. Motor and sensation grossly intact. Medications and IVs Current Medications Meclizine HCl (Antivert) 50 mg ONCE ONCE PO Last administered on 12/24/16t 14: 17; Start 12/24/16 at 13:45; Stop 12/24/16 at 13:46; Status DC Sodium Chloride (NS Flush) 2 ml UNSCH PRN IVF FLUSH AFTER USING IV ACCESS; Start 12/24/16 at 13:45; Stop 12/24/16 at 21:14; Status DC Lorazepam (Ativan Inj) 2 mg ONCE ONCE IV PUSH Last administered on 12/24/16 17 :35; Start 12/24/16 at 17:30; Stop 12/24/16 at 17:31; Status DC Gadodiamide 22 ml 22 ml STK-MED ONCE IV Last administered on 12/24/16 18:08; Start 12/24/16 at 18:08; Stop 12/24/16 at 18:09; Status DC Sodium Chloride (NS 1000 ml Inj) 1,000 ml @ 999 mls/hr BOLUS ONCE IV Last administered on 12/24/16 19:09; Start 12/24/16 at 18:30; Stop 12/24/16 at 19:30; Status DC IV Flush (NS Flush) 2 ml BID IV FLUSH Last administered on 12/28/16 08:07; Start 12/24/16 at 21:00 IV Flush (NS Flush) 2 ml UNSCH PRN IV FLUSH FLUSH AFTER USING IV ACCESS; Start 12/24/16 at 20:45 Morphine Sulfate (Morphine Inj) 2 mg Q3H PRN IV PUSH pain >5 Last administered on 12/25/16 06:44; Start 12/25/16 at 02:00 Carbamazepine (TEGretol) 200 mg BID PO Last administered on 12/28/16 08:07; Start 12/25/16 at 09:00 Carboxymethylcellulose Sodium (Refresh Tears 0.5% Opth Soln) 1 drop QID EACH EYE ; Start 12/25/16 at 09:00 Levothyroxine Sodium (Synthroid) 25 mcg DAILY@07 PO Last administered on 06:24; Start 12/25/16 at 07:00; Stop 12/27/16 at 12:01; Status DC Dextrose (D50w (Vial) Inj) 50 ml UNSCH PRN IV HYPOGLYCEMIA-SEE COMMENTS; Start 12/25/16 at 03:45 Glucagon (Glucagon Inj) 1 mg UNSCH PRN OTHER HYPOGLYCEMIA-SEE COMMENTS; Start 12/25/16 at 03:45 Insulin Aspart (NovoLOG SUPPLEMENTAL SCALE) 1 ACHS SLIDING SCALE SQ Last administered on 12/28/16 10:54; Start 12/25/16 at 07:00 Acetaminophen/ Hydrocodone Bitart 1 tab 1 tab Q4H PRN PO PAIN SCALE 4 TO 10 Last administered on 12/28/16 10:56; Start 12/25/16 at 07:30 Sodium Chloride (NS 1000 ml Inj) 1,000 ml @ 75 mls/hr [id number] IV Last administered on 12/25/16 22:57; Start 12/25/16 at 08:55 Aspirin (Aspirin) 325 mg DAILY PO Last administered on 12/28/16 08:07; Start at 17:15 Enalaprilat (Vasotec Inj) 1.25 mg Q6H PRN IV PUSH SBP>180 or DBP>100 Last administered on 12/28/16 08:07; Start 12/25/16 at 13:00 Lorazepam (Ativan) 1 mg UNSCH X1 PO Last administered on 12/25/16 20:14; Start 12/25/16 at 17:15; Stop 12/25/16 at 23:59; Status DC Gadodiamide (Omniscan Pf Inj) 20 ml STK-MED ONCE IV Last administered on 23:04; Start 12/25/16 at 23:04; Stop 12/25/16 at 23:05; Status DC Iodixanol (VISIPAQUE 320 INJ (Rad CT)) 46 ml STK-MED ONCE IV Last administered on 12/26/16 11:15; Start 12/26/16 at 11:15; Stop 12/26/16 at 11:16; Status DC Pravastatin Sodium (Pravachol) 80 mg HS PO Last administered on 12/27/16 20:43 ; Start 12/27/16 at 21:00 Gabapentin (Neurontin) 300 mg BID PO Last administered on 12/28/16 08:07; Start 12/27/16 at 21:00 Levothyroxine Sodium (Synthroid) 25 mcg DAILY@0600 PO Last administered on 06:12; Start 12/28/16 at 06:00 Lisinopril (Prinivil) 40 mg DAILY PO BPM Last administered on 12/28/16 11:32; Start 12/28/16 at 11:15 A/P Problem List: (1) Humerus fracture ICD Code: S42.309A Status: Acute (2) Unsteady gait ICD Code: R26.81 Status: Acute (3) CVA (cerebral vascular accident) ICD Code: I63.9 Status: Acute Assessment and Plan 61 y/o male with a history of CVA x 3, HTN, DM, Hypothyroidism, kidney cancer and arthritis visual changes and unsteady gait Acute to subacute infarcts in the posterior circulation involving both cerebellar hemispheres and the left occipital lobe -History of remote lacunar infarct -Questionable cardiac source. -Neurologist ff. Carotid ultrasound negative. Echo reviewed and grossly normal. LDL 90 and is taking simvastatin at him. -MRA showed truncated flow in the right posterior cerebral artery after the 1st turn. Minimal flow in bilateral PCOM. -CTA of the neck showed Calcific left vertebral stenosis with a very diminutive small right vertebral artery. -CTA of the brain showed stenosis distal left vertebral with moderate intracranial atherosclerotic vascular disease. -Patient has been taking a baby aspirin. On aspirin 325 mg. Per neurologist start Coumadin in the next few days. Will need to be cautious due to the severe of his stroke and increased risks of hemorrhagic stroke. Patient will need close monitoring. Humerus fracture -Xray reviewed shows Slightly comminuted and mildly displaced humeral neck fracture with avulsion of the greater tuberosity. -Portal consulted and stated to continue with nonoperative treatment. Per Ortho splint will be removed and he will be fitted for a sling and swath by [employer]. Left upper extremity will continue to be nonweightbearing and remain in sling and swath at all times. No range of motion to the shoulder will be performed. -Follow-up x-rays will be obtained and 10-14 days -Ortho cleared patient. Hypertension -Blood pressure labile. Acute kidney injury -Creatine 1.35, unknown baseline -Resolved with fluids. DM, chronic -Accu checks with SSI -A1C 7. Seizures, chronic -Cont home Tegretol -Tegretol level ordered. DVT prophylaxis: SCDs . Discharge Planning Patient will need close monitoring while on Coumadin due to high risk of intracranial bleed. Coumadin to be started a few days. Follow-up with case management in regards to SNF placement Judy Coreas MD Dec 28, 2016 11:42
--- NOTE | 2016-12-28 13:04 | HHI.PR ---
Review/Management Diagnosis bilateral cerebellar strokes, left occipital stroke, stenotic left vertebral artery Plan continue asa for now. Would add coumadin in next 2-3 days due to possibility of basilar artery atherosclerosis. Due to large size of the left cerebellar infarct , would wait 2-3 days to start coumadin as at this point, there is a significant risk of hemorrhagic conversion . Diagnosis/Plan: Subjective Subjective Comments No acute events reported denies double vision, vertigo Active Medications Current Medications Medications (Trade) Dose Ordered Sig/Niels Route Start Time Stop Time Status Last Admin (NS Flush) 2 ml BID IV FLUSH 12/24/16 21:00 12/28/16 08:07 (NS Flush) 2 ml UNSCH PRN IV FLUSH 12/24/16 20:45 (Morphine Inj) 2 mg Q3H PRN IV PUSH 12/25/16 02:00 12/25/16 06:44 (TEGretol) 200 mg BID PO 12/25/16 09:00 12/28/16 08:07 (Refresh Tears 0.5% Opth Soln) 1 drop QID EACH EYE 12/25/16 09:00 (D50w (Vial) Inj) 50 ml UNSCH PRN IV 12/25/16 03:45 (Glucagon Inj) 1 mg UNSCH PRN OTHER 12/25/16 03:45 Acetaminophen/ Hydrocodone Bitart 1 tab 1 tab Q4H PRN PO 12/25/16 07:30 12/28/16 10:56 (NS 1000 ml Inj) 1,000 ml @ 75 mls/hr [id number] IV 12/25/16 08:55 12/25/16 22:57 (Aspirin) 325 mg DAILY PO 12/25/16 17:15 12/28/16 08:07 (Vasotec Inj) 1.25 mg Q6H PRN IV PUSH 12/25/16 13:00 12/28/16 08:07 (Pravachol) 80 mg HS PO 12/27/16 21:00 12/27/16 20:43 (Neurontin) 300 mg BID PO 12/27/16 21:00 12/28/16 08:07 (Synthroid) 25 mcg DAILY@0600 PO 12/28/16 06:00 12/28/16 06:12 (Prinivil) 40 mg DAILY PO 12/28/16 11:15 12/28/16 11:32 Allergies Allergies Coded Allergies Ibuprofen (Verified Allergy, Severe, 12/24/16) Exam I&O / VS 12/27/16 12/27/16 12/28/16 15:00 23:00 07:00 Intake Total 1080 ml 120 ml Output Total 1250 ml 800 ml Balance -170 ml -680 ml Intake Oral 1080 ml 120 ml Output Urine Total 1250 ml 800 ml # Voids 2 # Bowel Movements 0 0 Vital Signs Date Time Temp Pulse Resp B/P Pulse Ox O2 Delivery O2 Flow Rate FiO2 12/28/16 11:42 97.8 80 20 196/100 96 12/28/16 08:14 96.5 71 20 213/96 96 12/28/16 08:00 73 12/28/16 07:55 18 12/28/16 04:00 98.1 78 20 186/109 96 12/28/16 00:00 97.0 83 20 170/100 97 12/27/16 20:00 97.8 90 20 214/99 96 12/27/16 20:00 80 12/27/16 16:46 97.1 86 20 203/93 98 12/27/16 15:00 85 Exam Comments alert, oriented, speech normal CN intact MOTOR 5/5 RUE. Not able to test LUE 5/5 Augie Light PhD Dec 28, 2016 13:04
[2016-12-28] MEDS: PRAVASTATIN SOD 80 MG TAB PO SCH (22:19)
[2016-12-29] VITALS (9 sets, daily range): BP systolic 166–226; BP diastolic 90–111; PULSE 77–90; RESP 18–20; TEMP 95.9–98.8; O2SAT 95–97
[2016-12-29] MEDS: ENALAPRILAT 1.25 MG/ML VIAL IV PUSH PRN (00:47)
[2016-12-29] MEDS: ACETAMINOPHEN/HYDROcodone 325 MG/7.5 MG TAB PO PRN ×6 (02:28→22:13)
[2016-12-29] MEDS ORDERED: cloNIDine HCL 0.1 MG TAB PO ONE (05:30)
[2016-12-29] MEDS: LEVOTHYROXINE SODIUM 25 MCG TAB PO SCH (05:42)
[2016-12-29] MEDS: SODIUM CHLOR 0.9% 1000 ML INJ 1,000 ML IV SCH ×2 (06:15→16:02)
[2016-12-29] MEDS: INSULIN ASPART SUPPLEMENTAL SCALE SQ SCH ×4 (06:25→22:14)
[2016-12-29] MEDS: GABAPENTIN 300 MG CAP PO SCH ×2 (07:53→22:13)
[2016-12-29] MEDS: CARBOXYMETHYLCELL SOD 0.5% OPTH SOLN 15 ML BTL EACH EYE SCH ×4 (07:53→21:00)
[2016-12-29] MEDS: SODIUM CHLORIDE 0.9% FLUSH 5 ML FLUSH IV FLUSH SCH ×2 (07:53→21:00)
[2016-12-29] MEDS: LISINOPRIL 20 MG TAB PO SCH (07:54)
[2016-12-29] MEDS: carBAMazepine 200 MG TAB PO SCH ×2 (07:56→22:13)
[2016-12-29] MEDS: ASPIRIN 325 MG TAB PO SCH (07:58)
--- NOTE | 2016-12-29 08:19 | HHI.PR ---
Objective Vital Signs Date Time Temp Pulse Resp B/P Pulse Ox O2 Delivery O2 Flow Rate FiO2 12/29/16 04:00 96.8 80 20 201/103 97 12/29/16 00:00 97.0 79 20 226/111 96 12/28/16 20:00 97.3 80 18 190/91 98 12/28/16 16:10 97.7 78 20 192/88 99 12/28/16 15:04 80 12/28/16 11:42 97.8 80 20 196/100 96 I/O 12/28/16 12/28/16 12/28/16 12/29/16 12/29/16 12/29/16 07:00 15:00 23:00 07:00 15:00 23:00 Intake Total 120 ml 1200 ml Output Total 800 ml 200 ml Balance -680 ml 1000 ml Intake Oral 120 ml 1200 ml Output Urine Total 800 ml 200 ml # Voids 2 3 1 # Bowel Movements 0 Result Diagram: 12/25/16 0734 12/27/16 1231 Objective Remarks awake pupil = no nystag vff face sym 10/24 t/o sitting up walked wel with PT he said Assessment and Plan Assessment and Plan imp bilat cbllr and left occ cva he has left vert lone artery and there looks like sign distal left vert stenosis or clot check cta could consider stent echo neg ldl ok esr 60 fu labs and holter fu tlel he does not know why he is on cbz level ok sr cta sign vert stenosis mod severe i dw dr haney last week he did not want to stent too risky now asa 325now and i may start plavix or coumadin in a week best coarse for now he could go home if steady on feet with PT or go to rehab cbz on bottle says sz although he does not think he ever had one Alo García MD Dec 29, 2016 08:19
--- NOTE | 2016-12-29 09:53 | HHI.PR ---
Subjective Remarks Follow-up for CVA Patient stated that he walked the hallway yesterday with process assistant. He stated that he feels more steady on his feet but he feels like he needs another day before going home. Patient stated that he spoke with his brother and that they both feel that he will do better at home. Patient declined SNF placement. Denied any new symptoms. Objective Vitals Vital Signs Date Time Temp Pulse Resp B/P Pulse Ox O2 Delivery O2 Flow Rate FiO2 12/29/16 08:40 95.9 78 20 176/94 95 12/29/16 08:37 77 12/29/16 04:00 96.8 80 20 201/103 97 12/29/16 00:00 97.0 79 20 226/111 96 12/28/16 20:00 97.3 80 18 190/91 98 12/28/16 16:10 97.7 78 20 192/88 99 12/28/16 15:04 80 12/28/16 11:42 97.8 80 20 196/100 96 I/O 12/28/16 12/28/16 12/28/16 12/29/16 12/29/16 12/29/16 07:00 15:00 23:00 07:00 15:00 23:00 Intake Total 120 ml 1200 ml Output Total 800 ml 200 ml Balance -680 ml 1000 ml Intake Oral 120 ml 1200 ml Output Urine Total 800 ml 200 ml # Voids 2 3 1 # Bowel Movements 0 Result Diagram: 12/25/16 0734 12/27/16 1231 Objective Remarks GENERAL: in NAD CARDIOVASCULAR: Regular rate and rhythm without murmurs, gallops, or rubs. RESPIRATORY: Breath sounds equal bilaterally. No accessory muscle use. GASTROINTESTINAL: Abdomen soft, non-tender, nondistended. MUSCULOSKELETAL: 5 out of 5 lower extremity strength. BACK: Nontender without obvious deformity. No CVA tenderness. NEURO: AAO X 3 and responding quicker. CN 2-12 intact. Motor and sensation grossly intact. Medications and IVs Current Medications Meclizine HCl (Antivert) 50 mg ONCE ONCE PO Last administered on 12/24/16t 14: 17; Start 12/24/16 at 13:45; Stop 12/24/16 at 13:46; Status DC Sodium Chloride (NS Flush) 2 ml UNSCH PRN IVF FLUSH AFTER USING IV ACCESS; Start 12/24/16 at 13:45; Stop 12/24/16 at 21:14; Status DC Lorazepam (Ativan Inj) 2 mg ONCE ONCE IV PUSH Last administered on 12/24/16 17 :35; Start 12/24/16 at 17:30; Stop 12/24/16 at 17:31; Status DC Gadodiamide 22 ml 22 ml STK-MED ONCE IV Last administered on 12/24/16 18:08; Start 12/24/16 at 18:08; Stop 12/24/16 at 18:09; Status DC Sodium Chloride (NS 1000 ml Inj) 1,000 ml @ 999 mls/hr BOLUS ONCE IV Last administered on 12/24/16 19:09; Start 12/24/16 at 18:30; Stop 12/24/16 at 19:30; Status DC IV Flush (NS Flush) 2 ml BID IV FLUSH Last administered on 12/29/16 07:53; Start 12/24/16 at 21:00 IV Flush (NS Flush) 2 ml UNSCH PRN IV FLUSH FLUSH AFTER USING IV ACCESS; Start 12/24/16 at 20:45 Morphine Sulfate (Morphine Inj) 2 mg Q3H PRN IV PUSH pain >5 Last administered on 12/25/16 06:44; Start 12/25/16 at 02:00 Carbamazepine (TEGretol) 200 mg BID PO Last administered on 12/29/16 07:56; Start 12/25/16 at 09:00 Carboxymethylcellulose Sodium (Refresh Tears 0.5% Opth Soln) 1 drop QID EACH EYE ; Start 12/25/16 at 09:00 Levothyroxine Sodium (Synthroid) 25 mcg DAILY@07 PO Last administered on 06:24; Start 12/25/16 at 07:00; Stop 12/27/16 at 12:01; Status DC Dextrose (D50w (Vial) Inj) 50 ml UNSCH PRN IV HYPOGLYCEMIA-SEE COMMENTS; Start 12/25/16 at 03:45 Glucagon (Glucagon Inj) 1 mg UNSCH PRN OTHER HYPOGLYCEMIA-SEE COMMENTS; Start 12/25/16 at 03:45 Insulin Aspart (NovoLOG SUPPLEMENTAL SCALE) 1 ACHS SLIDING SCALE SQ Last administered on 12/29/16 06:25; Start 12/25/16 at 07:00 Acetaminophen/ Hydrocodone Bitart 1 tab 1 tab Q4H PRN PO PAIN SCALE 4 TO 10 Last administered on 12/29/16 06:21; Start 12/25/16 at 07:30 Sodium Chloride (NS 1000 ml Inj) 1,000 ml @ 75 mls/hr [id number] IV Last administered on 12/25/16 22:57; Start 12/25/16 at 08:55 Aspirin (Aspirin) 325 mg DAILY PO Last administered on 12/29/16 07:58; Start 12/25/16 at 17:15 Enalaprilat (Vasotec Inj) 1.25 mg Q6H PRN IV PUSH SBP>180 or DBP>100 Last administered on 12/29/16 00:47; Start 12/25/16 at 13:00 Lorazepam (Ativan) 1 mg UNSCH X1 PO Last administered on 12/25/16 20:14; Start 12/25/16 at 17:15; Stop 12/25/16 at 23:59; Status DC Gadodiamide (Omniscan Pf Inj) 20 ml STK-MED ONCE IV Last administered on 23:04; Start 12/25/16 at 23:04; Stop 12/25/16 at 23:05; Status DC Iodixanol (VISIPAQUE 320 INJ (Rad CT)) 46 ml STK-MED ONCE IV Last administered on 12/26/16 11:15; Start 12/26/16 at 11:15; Stop 12/26/16 at 11:16; Status DC Pravastatin Sodium (Pravachol) 80 mg HS PO Last administered on 12/28/16 22:19 ; Start 12/27/16 at 21:00 Gabapentin (Neurontin) 300 mg BID PO Last administered on 12/29/16 07:53; Start 12/27/16 at 21:00 Levothyroxine Sodium (Synthroid) 25 mcg DAILY@0600 PO Last administered on 12/29 05:42; Start 12/28/16 at 06:00 Lisinopril (Prinivil) 40 mg DAILY PO BPM Last administered on 12/29/16 07:54; Start 12/28/16 at 11:15 Clonidine (Catapres) 0.1 mg ONCE ONCE PO Last administered on 12/29/16t 05:43 ; Start 12/29/16 at 05:30; Stop 12/29/16 at 05:31; Status DC A/P Problem List: (1) Humerus fracture ICD Code: S42.309A Status: Acute (2) Unsteady gait ICD Code: R26.81 Status: Acute (3) CVA (cerebral vascular accident) ICD Code: I63.9 Status: Acute Assessment and Plan 61 y/o male with a history of CVA x 3, HTN, DM, Hypothyroidism, kidney cancer and arthritis visual changes and unsteady gait Acute to subacute infarcts in the posterior circulation involving both cerebellar hemispheres and the left occipital lobe -History of remote lacunar infarct -Questionable cardiac source. -Neurologist ff. Carotid ultrasound negative. Echo reviewed and grossly normal. LDL 90 and is taking simvastatin at him. -MRA showed truncated flow in the right posterior cerebral artery after the 1st turn. Minimal flow in bilateral PCOM. -CTA of the neck showed Calcific left vertebral stenosis with a very diminutive small right vertebral artery. -CTA of the brain showed stenosis distal left vertebral with moderate intracranial atherosclerotic vascular disease. -Per neurologist, Dr. García continue with aspirin 325 mg by mouth daily. In one week he will determine if patient is on Plavix versus Coumadin. Per Dr. García patient will follow up with him. Humerus fracture -Xray reviewed shows Slightly comminuted and mildly displaced humeral neck fracture with avulsion of the greater tuberosity. -Ortho consulted and stated to continue with nonoperative treatment. Per Ortho splint will be removed and he will be fitted for a sling and swath by [employer]. Left upper extremity will continue to be nonweightbearing and remain in sling and swath at all times. No range of motion to the shoulder will be performed. -Follow-up x-rays will be obtained and 10-14 days -Ortho cleared patient. Hypertension -Blood pressure labile. Acute kidney injury -Creatine 1.35, unknown baseline -Resolved with fluids. DM, chronic -Accu checks with SSI -A1C 7. Seizures, chronic -Cont home Tegretol -Tegretol level ordered. DVT prophylaxis: SCDs . Discharge Planning Patient is medically clear for discharge pending placement. Patient declined SNF placement and stated he feels that if he works with PT today he will be ready to go home. d/w patient's nurse to call PT to work with patient today for possible d/c tomorrow. Judy Coreas MD Dec 29, 2016 09:53
[2016-12-29] MEDS: PRAVASTATIN SOD 80 MG TAB PO SCH (22:13)
[2016-12-30] VITALS (11 sets, daily range): BP systolic 137–203; BP diastolic 64–100; PULSE 66–91; RESP 16–20; TEMP 96.7–97.9; O2SAT 93–98
[2016-12-30] MEDS: ENALAPRILAT 1.25 MG/ML VIAL IV PUSH PRN ×2 (00:42→16:16)
[2016-12-30] MEDS: ACETAMINOPHEN/HYDROcodone 325 MG/7.5 MG TAB PO PRN ×5 (02:27→21:02)
[2016-12-30] MEDS: INSULIN ASPART SUPPLEMENTAL SCALE SQ SCH ×4 (05:26→21:04)
[2016-12-30] MEDS: LEVOTHYROXINE SODIUM 25 MCG TAB PO SCH (05:27)
--- NOTE | 2016-12-30 07:52 | HHI.PR ---
Subjective Remarks sr Objective Vital Signs Date Time Temp Pulse Resp B/P Pulse Ox O2 Delivery O2 Flow Rate FiO2 12/30/16 04:16 177/85 Automatic Cuff 12/30/16 04:00 96.7 66 20 12/30/16 00:00 97.5 75 20 203/95 93 199/98 Automatic Cuff 12/29/16 22:13 82 12/29/16 20:00 97.6 90 20 166/92 96 169/90 12/29/16 16:00 98.2 78 19 177/100 96 12/29/16 15:00 79 12/29/16 12:00 98.8 79 18 179/93 97 12/29/16 08:40 95.9 78 20 176/94 95 12/29/16 08:37 77 I/O 12/29/16 12/29/16 12/29/16 12/30/16 12/30/16 12/30/16 07:00 15:00 23:00 07:00 15:00 23:00 Intake Total 480 ml 240 ml Output Total 800 ml 400 ml 800 ml Balance -320 ml -160 ml -800 ml Intake Oral 480 ml 240 ml Output Urine Total 800 ml 400 ml 800 ml # Voids 1 1 # Bowel Movements 1 0 Result Diagram: 12/27/16 1231 Objective Remarks awake pupil = no nystag vff face sym 10/24 t/o sitting up walked well with PT he said again Assessment and Plan Assessment and Plan imp bilat cbllr and left occ cva he has left vert lone artery and there looks like sign distal left vert stenosis or clot check cta could consider stent echo neg ldl ok esr 60 fu labs and holter fu tlel he does not know why he is on cbz level ok 12/29/16 sr cta sign vert stenosis mod severe i dw dr haney last week he did not want to stent too risky now asa 325now and i may start plavix or coumadin in a week best coarse for now he could go home if steady on feet with PT or go to rehab cbz on bottle says sz although he does not think he ever had one 7/11/17 nothing major overnoc x bp up he can run 130-140/70-80 now and neds po meds to achieve this and can dc home when stable in that range Alo García MD Dec 30, 2016 07:52
[2016-12-30] MEDS: GABAPENTIN 300 MG CAP PO SCH ×2 (08:43→21:03)
[2016-12-30] MEDS: ASPIRIN 325 MG TAB PO SCH (08:43)
[2016-12-30] MEDS: SODIUM CHLORIDE 0.9% FLUSH 5 ML FLUSH IV FLUSH SCH ×2 (08:44→21:00)
[2016-12-30] MEDS: LISINOPRIL 20 MG TAB PO SCH (08:44)
[2016-12-30] MEDS: SODIUM CHLOR 0.9% 1000 ML INJ 1,000 ML IV SCH ×2 (08:44→22:15)
[2016-12-30] MEDS: carBAMazepine 200 MG TAB PO SCH ×2 (08:44→21:02)
[2016-12-30] MEDS: CARBOXYMETHYLCELL SOD 0.5% OPTH SOLN 15 ML BTL EACH EYE SCH ×4 (08:45→21:00)
--- NOTE | 2016-12-30 10:46 | HHI.PR ---
Subjective Remarks Follow-up for CVA Patient stated that his ambulation was better yesterday. He continues to want to go home with his brother. Declined SNF. He stated that physical therapist wanted to talk to his brother tomorrow. He has no new neurological symptoms. Blood pressure elevated in the 180s. Objective Vitals Vital Signs Date Time Temp Pulse Resp B/P Pulse Ox O2 Delivery O2 Flow Rate FiO2 12/30/16 08:00 97.4 72 16 176/100 96 12/30/16 07:43 18 12/30/16 04:16 177/85 Automatic Cuff 12/30/16 04:00 96.7 66 20 12/30/16 00:00 97.5 75 20 203/95 93 199/98 Automatic Cuff 12/29/16 22:13 82 12/29/16 20:00 97.6 90 20 166/92 96 169/90 12/29/16 16:00 98.2 78 19 177/100 96 12/29/16 15:00 79 12/29/16 12:00 98.8 79 18 179/93 97 I/O 12/29/16 12/29/16 12/29/16 12/30/16 12/30/16 12/30/16 07:00 15:00 23:00 07:00 15:00 23:00 Intake Total 480 ml 240 ml Output Total 800 ml 400 ml 800 ml Balance -320 ml -160 ml -800 ml Intake Oral 480 ml 240 ml Output Urine Total 800 ml 400 ml 800 ml # Voids 1 1 # Bowel Movements 1 0 Result Diagram: 12/27/16 1231 Objective Remarks GENERAL: in NAD CARDIOVASCULAR: Regular rate and rhythm without murmurs, gallops, or rubs. RESPIRATORY: Breath sounds equal bilaterally. No accessory muscle use. GASTROINTESTINAL: Abdomen soft, non-tender, nondistended. MUSCULOSKELETAL: 5 out of 5 lower extremity strength. BACK: Nontender without obvious deformity. No CVA tenderness. NEURO: AAO X 3 and responding quicker. CN 2-12 intact. Motor and sensation grossly intact. Medications and IVs Current Medications Meclizine HCl (Antivert) 50 mg ONCE ONCE PO Last administered on 12/24/16t 14: 17; Start 12/24/16 at 13:45; Stop 12/24/16 at 13:46; Status DC Sodium Chloride (NS Flush) 2 ml UNSCH PRN IVF FLUSH AFTER USING IV ACCESS; Start 12/24/16 at 13:45; Stop 12/24/16 at 21:14; Status DC Lorazepam (Ativan Inj) 2 mg ONCE ONCE IV PUSH Last administered on 12/24/16 17 :35; Start 12/24/16 at 17:30; Stop 12/24/16 at 17:31; Status DC Gadodiamide 22 ml 22 ml STK-MED ONCE IV Last administered on 12/24/16 18:08; Start 12/24/16 at 18:08; Stop 12/24/16 at 18:09; Status DC Sodium Chloride (NS 1000 ml Inj) 1,000 ml @ 999 mls/hr BOLUS ONCE IV Last administered on 12/24/16 19:09; Start 12/24/16 at 18:30; Stop 12/24/16 at 19:30; Status DC IV Flush (NS Flush) 2 ml BID IV FLUSH Last administered on 12/30/16 08:44; Start 12/24/16 at 21:00 IV Flush (NS Flush) 2 ml UNSCH PRN IV FLUSH FLUSH AFTER USING IV ACCESS; Start 12/24/16 at 20:45 Morphine Sulfate (Morphine Inj) 2 mg Q3H PRN IV PUSH pain >5 Last administered on 12/25/16 06:44; Start 12/25/16 at 02:00 Carbamazepine (TEGretol) 200 mg BID PO Last administered on 12/30/16 08:44; Start 12/25/16 at 09:00 Carboxymethylcellulose Sodium (Refresh Tears 0.5% Opth Soln) 1 drop QID EACH EYE ; Start 12/25/16 at 09:00 Levothyroxine Sodium (Synthroid) 25 mcg DAILY@07 PO Last administered on 06:24; Start 12/25/16 at 07:00; Stop 12/27/16 at 12:01; Status DC Dextrose (D50w (Vial) Inj) 50 ml UNSCH PRN IV HYPOGLYCEMIA-SEE COMMENTS; Start 12/25/16 at 03:45 Glucagon (Glucagon Inj) 1 mg UNSCH PRN OTHER HYPOGLYCEMIA-SEE COMMENTS; Start 12/25/16 at 03:45 Insulin Aspart (NovoLOG SUPPLEMENTAL SCALE) 1 ACHS SLIDING SCALE SQ Last administered on 12/30/16 05:26; Start 12/25/16 at 07:00 Acetaminophen/ Hydrocodone Bitart 1 tab 1 tab Q4H PRN PO PAIN SCALE 4 TO 10 Last administered on 12/30/16 06:43; Start 12/25/16 at 07:30 Sodium Chloride (NS 1000 ml Inj) 1,000 ml @ 75 mls/hr [id number] IV Last administered on 12/30/16 08:44; Start 12/25/16 at 08:55 Aspirin (Aspirin) 325 mg DAILY PO Last administered on 12/30/16 08:43; Start 12/25/16 at 17:15 Enalaprilat (Vasotec Inj) 1.25 mg Q6H PRN IV PUSH SBP>180 or DBP>100 Last administered on 12/30/16 00:42; Start 12/25/16 at 13:00 Lorazepam (Ativan) 1 mg UNSCH X1 PO Last administered on 12/25/16 20:14; Start 12/25/16 at 17:15; Stop 12/25/16 at 23:59; Status DC Gadodiamide (Omniscan Pf Inj) 20 ml STK-MED ONCE IV Last administered on 23:04; Start 12/25/16 at 23:04; Stop 12/25/16 at 23:05; Status DC Iodixanol (VISIPAQUE 320 INJ (Rad CT)) 46 ml STK-MED ONCE IV Last administered on 12/26/16 11:15; Start 12/26/16 at 11:15; Stop 12/26/16 at 11:16; Status DC Pravastatin Sodium (Pravachol) 80 mg HS PO Last administered on 12/29/16 22:13 ; Start 12/27/16 at 21:00 Gabapentin (Neurontin) 300 mg BID PO Last administered on 12/30/16 08:43; Start 12/27/16 at 21:00 Levothyroxine Sodium (Synthroid) 25 mcg DAILY@0600 PO Last administered on 12/30 05:27; Start 12/28/16 at 06:00 Lisinopril (Prinivil) 40 mg DAILY PO BPM Last administered on 12/30/16 08:44; Start 12/28/16 at 11:15 Clonidine (Catapres) 0.1 mg ONCE ONCE PO Last administered on 12/29/16t 05:43 ; Start 12/29/16 at 05:30; Stop 12/29/16 at 05:31; Status DC Amlodipine Besylate (Norvasc) 10 mg DAILY PO ; Start 12/30/16 at 10:30 Carvedilol (Coreg) 25 mg BID PO ; Start 12/30/16 at 10:30 Hydralazine HCl (Apresoline) 100 mg BID PO ; Start 12/30/16 at 10:30 A/P Problem List: (1) Humerus fracture ICD Code: S42.309A Status: Acute (2) Unsteady gait ICD Code: R26.81 Status: Acute (3) CVA (cerebral vascular accident) ICD Code: I63.9 Status: Acute Assessment and Plan 61 y/o male with a history of CVA x 3, HTN, DM, Hypothyroidism, kidney cancer and arthritis visual changes and unsteady gait Acute to subacute infarcts in the posterior circulation involving both cerebellar hemispheres and the left occipital lobe -History of remote lacunar infarct -Questionable cardiac source. -Neurologist ff. Carotid ultrasound negative. Echo reviewed and grossly normal. LDL 90 and is taking simvastatin at him. -MRA showed truncated flow in the right posterior cerebral artery after the 1st turn. Minimal flow in bilateral PCOM. -CTA of the neck showed Calcific left vertebral stenosis with a very diminutive small right vertebral artery. -CTA of the brain showed stenosis distal left vertebral with moderate intracranial atherosclerotic vascular disease. -Per neurologist, Dr. García continue with aspirin 325 mg by mouth daily. In one week he will determine if patient is on Plavix versus Coumadin. Per Dr. García patient will follow up with him. Humerus fracture -Xray reviewed shows Slightly comminuted and mildly displaced humeral neck fracture with avulsion of the greater tuberosity. -Ortho consulted and stated to continue with nonoperative treatment. Per Ortho splint will be removed and he will be fitted for a sling and swath by [employer]. Left upper extremity will continue to be nonweightbearing and remain in sling and swath at all times. No range of motion to the shoulder will be performed. -Follow-up x-rays will be obtained and 10-14 days -Ortho cleared patient. Hypertension -Blood pressure labile. -Per Dr. García patient can run 130-140/70-80 now and needs po meds to achieve this and can dc home when stable in that range -Will resume carvedilol, amlodipine, hydralazine. Continue to monitor blood pressure. Acute kidney injury -Creatine 1.35, unknown baseline -Resolved with fluids. DM, chronic -Accu checks with SSI -A1C 7. Seizures, chronic -Cont home Tegretol -Tegretol level ordered. DVT prophylaxis: SCDs . Discharge Planning Per neurologist blood pressure must be stable before discharge. Once medically stable patient can be discharged to home with home health. Dealt with case management regards to plan. Judy Coreas MD Dec 30, 2016 10:45
[2016-12-30] MEDS: CARVEDILOL 12.5 MG TAB PO SCH ×2 (11:14→21:07)
[2016-12-30] MEDS: hydrALAZINE HCL 100 MG TAB PO SCH ×2 (11:14→21:02)
[2016-12-30] MEDS ORDERED: cloNIDine HCL 0.1 MG TAB PO PRN (17:30)
[2016-12-30] MEDS: cloNIDine HCL 0.1 MG TAB PO SCH (21:02)
[2016-12-30] MEDS: PRAVASTATIN SOD 80 MG TAB PO SCH (21:02)
[2016-12-31 00:23] VITALS: BP 147/85; PULSE 80; RESP 17; TEMP 97.6; O2SAT 97
[2016-12-31] MEDS: ACETAMINOPHEN/HYDROcodone 325 MG/7.5 MG TAB PO PRN ×4 (02:20→14:11)
[2016-12-31 05:03] VITALS: BP 149/82; PULSE 64; RESP 17; TEMP 97.2; O2SAT 97
[2016-12-31] MEDS: INSULIN ASPART SUPPLEMENTAL SCALE SQ SCH ×2 (05:54→11:47)
[2016-12-31] MEDS: LEVOTHYROXINE SODIUM 25 MCG TAB PO SCH (06:00)
[2016-12-31 07:59] VITALS: BP 136/80; PULSE 67; RESP 20; TEMP 96; O2SAT 96
[2016-12-31] MEDS: CARBOXYMETHYLCELL SOD 0.5% OPTH SOLN 15 ML BTL EACH EYE SCH ×2 (09:00→13:00)
[2016-12-31] MEDS: SODIUM CHLORIDE 0.9% FLUSH 5 ML FLUSH IV FLUSH SCH (09:00)
[2016-12-31] MEDS: carBAMazepine 200 MG TAB PO SCH (09:24)
[2016-12-31] MEDS: cloNIDine HCL 0.1 MG TAB PO SCH (09:25)
[2016-12-31] MEDS: GABAPENTIN 300 MG CAP PO SCH (09:26)
[2016-12-31] MEDS: LISINOPRIL 20 MG TAB PO SCH (09:26)
[2016-12-31] MEDS: CARVEDILOL 12.5 MG TAB PO SCH (09:26)
[2016-12-31] MEDS: ASPIRIN 325 MG TAB PO SCH (09:26)
[2016-12-31] MEDS: hydrALAZINE HCL 100 MG TAB PO SCH (09:26)
[2016-12-31 09:30] VITALS: PULSE 68
[2016-12-31] MEDS: SODIUM CHLOR 0.9% 1000 ML INJ 1,000 ML IV SCH (11:35)
[2016-12-31 12:10] VITALS: BP 144/70; PULSE 80; RESP 20; TEMP 98.2; O2SAT 95
[2016-12-31] MEDS ORDERED: SIMV40TA PO (12:12)
[2016-12-31] MEDS ORDERED: ASPI325T PO (12:12)
--- NOTE | 2016-12-31 12:13 | HHI.DCPOC ---
Discharge Care Plan Diagnosis: (1) CVA (cerebral vascular accident) (2) Humerus fracture (3) Hypertension (4) Unsteady gait Goals to Promote Your Health * To prevent worsening of your condition and complications * To maintain your health at the optimal level Directions to Meet Your Goals Take your medications as prescribed Follow your dietary instruction Follow activity as directed Keep your appointments as scheduled Take your immunizations and boosters as scheduled If your symptoms worsen call your PCP, if no PCP go to Urgent Care Center or Emergency Room Smoking is Dangerous to Your Health. Avoid second hand smoke Call the 24-hour hour crisis hotline for domestic abuse at Judy Coreas MD Dec 31, 2016 12:13
[2016-12-31 15:11] VITALS: RESP 18
== END 2016-12-31 16:28 | disposition home health service (06) | DRG 65 ==
LOC: NEPE 12:33 → NEDA 20:41 → N05A 12-25 01:20
PROVIDERS: ADMIT Family Medicine; ATTEND Family Medicine
DX: I63.9 Cerebral infarction, unspecified (principal); S42.252A Displaced fracture of greater tuberosity of left humerus, initial encounter for closed fracture; N17.9 Acute kidney failure, unspecified; I10 Essential (primary) hypertension; E11.9 Type 2 diabetes mellitus without complications; R26.9 Unspecified abnormalities of gait and mobility; E03.9 Hypothyroidism, unspecified; M19.90 Unspecified osteoarthritis, unspecified site; J45.909 Unspecified asthma, uncomplicated; Z96.651 Presence of right artificial knee joint; W19.XXXA Unspecified fall, initial encounter; Y93.01 Activity, walking, marching and hiking; E78.00 Pure hypercholesterolemia, unspecified; G40.909 Epilepsy, unspecified, not intractable, without status epilepticus; Z90.5 Acquired absence of kidney; Z87.891 Personal history of nicotine dependence; Z79.4 Long term (current) use of insulin; Z79.82 Long term (current) use of aspirin; Z86.73 Personal history of transient ischemic attack (TIA), and cerebral infarction without residual deficits; Z85.528 Personal history of other malignant neoplasm of kidney
CPT/HCPCS: 70450; 70496; 70498; 70544; 70548; 70553; 71010; 73060; 76937; 80048; 80053; 80061; 80156; 80307; 81001; 82550; 82607; 82746; 82948; 83036; 83735; 84165; 84425; 84439; 84443; 84484; 85025; 85610; 85652; 85730; 86038; 86140; 86430; 86592; 93005; 93306; 93880; 96361; 96374; A9579; J1815; J2060; J2270; J7030; Q9967

== ENCOUNTER 2017-01-02 11:55 | Emergency (ER) | payer OTHER ==
[~2017-01-02] VITALS: Ht 184.2 cm; Wt 109.1 kg
[~2017-01-02 11:55] MED LIST: AMLO10TA2 PO; ASPI325T PO; CALC600T64; CALCTAB19 PO; CARB200T PO; CARV25TA PO; CLON0.1T PO; ERGO1CAP30 PO; HYDR-3580 PO; HYDR-3801 PO; INSU1INJ18 SQ; LEVO25TA4 PO; LISI40TA PO; NOVOLOGP2 SQ; REFR0.5D9 EACH EYE; SIMV40TA PO
[2017-01-02 12:08] VITALS: BP 134/70; PULSE 75; RESP 16; TEMP 98.4; O2SAT 95
[2017-01-02 12:30] VITALS: BP 128/79; PULSE 78; RESP 18; O2SAT 97
--- NOTE | 2017-01-02 12:53 | PD ---
HPI . Dizziness Chief Complaint: Dizziness Time Seen by Provider: 12:40 Travel History International Travel<30 days: No Contact w/Intl Traveler<30days: No Traveled to known affect area: No History of Present Illness HPI This patient presents with the chief complaint of dizziness. Onset was about 9: 30 this morning. He states he's been very sleepy. He states that his vision has been blurry. He states that his family told him that his speech was slurred. He denies any nausea or diplopia. He denies any weakness or headache. He does report decreased urinary output. This patient further states that he was just started on hydrocodone yesterday for a left humeral fracture. He states that he has had a couple of doses of the hydrocodone and that he falls asleep almost immediately after taking it. PFSH Past Medical History Cardiovascular Problems: Yes (HEART DISEASE) Cerebrovascular Accident: Yes (CVA/TIA) Diabetes: Yes Patient Takes Glucophage: No Hypertension: Yes Renal Failure: Yes Influenza Vaccination: Yes Past Surgical History Genitourinary Surgery: Yes (right kindey removal(CA)) Social History Alcohol Use: No Tobacco Use: No Substance Use: Yes (occasional marijuana) Allergies-Medications (Allergen,Severity, Reaction): Coded Allergies: Ibuprofen (Verified Allergy, Severe, 01/02/17) i swell up Reported Meds & Prescriptions Reported Meds & Active Scripts Active Simvastatin 40 Mg Tab 40 Mg PO HS Aspirin 325 Mg Tab 325 Mg PO DAILY Calcium 600+D 200 (Calcium Carbonate-Vitamin D) 600-200 Mg-Unit Tab 1 Tab PO BID Ergocalciferol 50,000 Unit Cap 50,000 Units PO Q7D Hydrocodone-Acetaminophen 7.5-325 mg Tab 1 Tab PO Q4H PRN Reported Hydralazine (Hydralazine HCl) 100 Mg Tab 100 Mg PO BID Take with meals Amlodipine (Amlodipine Besylate) 10 Mg Tab 10 Mg PO DAILY Clonidine (Clonidine HCl) 0.1 Mg Tab 0.1 Mg PO BID Lisinopril 40 Mg Tab 40 Mg PO DAILY Levothyroxine (Levothyroxine Sodium) 25 Mcg Tab 25 Mcg PO DAILY Novolog Inj (Insulin Aspart) 1,000 Unit/10 Ml Vial 0 SQ DIRECTED Sliding Scale as directed. Carvedilol 25 Mg Tab 25 Mg PO BID Carbamazepine 200 Mg Tab 200 Mg PO BID Refresh Plus Unit-Dose 0.5% Opth (Carboxymethylcellulose Sodium 0.5% Opth) 0.5% Drops 1 Drop EACH EYE QID Michael Correiapen (Insulin Glargine) 100 Unit/Ml Pen 1 Units SQ DAILY Review of Systems Except as stated in HPI: all other systems reviewed are Neg General / Constitutional: No: Fever, Chills Eyes: Positive: Blurred Vision, No: Diploplia HENT: Positive: Lightheadedness, No: Headaches, Vertigo Cardiovascular: No: Chest Pain or Discomfort Respiratory: No: Shortness of Breath Gastrointestinal: No: Nausea, Vomiting, Diarrhea Genitourinary: Positive: Decreased Urinary Output, No: Urgency, Frequency, Dysuria Musculoskeletal: Positive: Myalgias (left upper extremity pain secondary to recent humerus fracture) Neurologic: Positive: Change in Mentation, Slurred Speech, No: Weakness, Dizziness, Syncope, Focal Abnormalities, Headache, Incontinence, Seizures Physical Exam Narrative GENERAL: Patient is awake and alert and in no acute distress. SKIN: Warm and dry. Old bruising on the left upper extremity and the left upper chest wall. HEAD: Atraumatic. Normocephalic. EYES: Pupils equal and round. Extraocular movements are intact. ENT: No nasal bleeding or discharge. Mucous membranes pink and moist. NECK: Trachea midline. Neck is supple. CARDIOVASCULAR: Regular rate and rhythm. Heart sounds are normal. RESPIRATORY: No accessory muscle use. Lungs are clear with full air movement throughout. GASTROINTESTINAL: Abdomen soft, non-tender, nondistended. MUSCULOSKELETAL: No obvious deformities. No edema. NEUROLOGICAL: Awake and alert. He is able to wrinkle his forehead normally. He is able to close his eyes against resistance with equal strength. His tongue protrudes in midline. There is no facial droop. Motor grossly within normal limits. Normal speech. PSYCHIATRIC: Appropriate mood and affect; insight and judgment normal. Data Data Last Documented VS Vital Signs Date Time Temp Pulse Resp B/P Pulse Ox O2 Delivery O2 Flow Rate FiO2 01/02/17 13:48 16 97 Room Air 01/02/17 12:08 98.4 75 134/70 Orders Electrocardiogram (01/02/17 12:51) Basic Metabolic Panel (Bmp) (01/02/17 12:51) Complete Blood Count With Diff (01/02/17 12:51) Ckmb (Isoenzyme) Profile (01/02/17 12:51) Troponin I (01/02/17 12:51) Ct Brain W/O Iv Contrast(Rout) (01/02/17 12:51) Ecg Monitoring (01/02/17 12:51) Iv Access Insert/Monitor (01/02/17 12:51) Oximetry (01/02/17 12:51) Sodium Chloride 0.9% Flush (Ns Flush) (01/02/17 13:00) Sodium Chlor 0.9% 1000 Ml Inj (Ns 1000 M (01/02/17 15:30) Urinalysis - C+S If Indicated (01/02/17 15:22) Labs Laboratory Tests Test 01/02/17 13:10 White Blood Count 9.9 TH/MM3 Red Blood Count 4.20 MIL/MM3 Hemoglobin 11.9 GM/DL Hematocrit 35.0 % Mean Corpuscular Volume 83.3 FL Mean Corpuscular Hemoglobin 28.4 PG Mean Corpuscular Hemoglobin 34.1 % Concent Red Cell Distribution Width 13.8 % Platelet Count 251 TH/MM3 Mean Platelet Volume 8.4 FL Neutrophils (%) (Auto) 63.9 % Lymphocytes (%) (Auto) 24.4 % Monocytes (%) (Auto) 8.3 % Eosinophils (%) (Auto) 3.0 % Basophils (%) (Auto) 0.4 % Neutrophils # (Auto) 6.3 TH/MM3 Lymphocytes # (Auto) 2.4 TH/MM3 Monocytes # (Auto) 0.8 TH/MM3 Eosinophils # (Auto) 0.3 TH/MM3 Basophils # (Auto) 0.0 TH/MM3 CBC Comment DIFF FINAL Differential Comment Sodium Level 137 MEQ/L Potassium Level 4.0 MEQ/L Chloride Level 106 MEQ/L Carbon Dioxide Level 24.5 MEQ/L Anion Gap 7 MEQ/L Blood Urea Nitrogen 30 MG/DL Creatinine 1.14 MG/DL Estimat Glomerular Filtration 65 ML/MIN Rate Random Glucose 176 MG/DL Calcium Level 9.4 MG/DL Total Creatine Kinase 34 U/L Troponin I LESS THAN 0.02 NG/ML MDM Medical Decision Making Medical Screen Exam Complete: Yes Emergency Medical Condition: Yes Interpretation(s) EKG shows a normal sinus rhythm with no acute ischemic change. Differential Diagnosis Differential diagnosis of dizziness includes but is not limited to vertigo, dehydration, acute blood loss, sepsis, ACS Narrative Course Patient presents for evaluation of dizziness. He has no neurological findings. There is no facial or extremity weakness. His speech is not slurred. I suspect that the dizziness is an effect of the hydrocodone. CBC & BMP Diagram 01/02/17 13:10 Cardiac enzymes are negative. Caroline Smith MD Jan 02, 2017 12:53
[2017-01-02] MEDS ORDERED: SODIUM CHLORIDE 0.9% FLUSH 10 ML FLUSH IVF PRN (13:00)
[2017-01-02 13:46] LABS: AUTOMATED NEUTROPHIL # 6.3 TH/MM3 (1.8-7.7); BASOPHIL % 0.4 % (0.0-2.0); EOSINOPHIL # 0.3 TH/MM3 (0-0.4); HEMO FLAGS DIFF FINAL; LYMPH % 24.4 % (9.0-44.0); LYMPHOCYTE # 2.4 TH/MM3 (1.0-4.8); MEAN CELL VOLUME 83.3 FL (80.0-100.0); MEAN CORPUSCULAR HEMOGLOBIN 28.4 PG (27.0-34.0); MEAN CORPUSCULAR HGB CONC 34.1 % (32.0-36.0); MONO % 8.3 % (0.0-8.0); NEUT % 63.9 % (16.0-70.0); PLATELET COUNT 251 TH/MM3 (150-450); RED CELL DISTRIBUTION WIDTH 13.8 % (11.6-17.2); WHITE BLOOD COUNT 9.9 TH/MM3 (4.0-11.0)
[2017-01-02 13:48] VITALS: RESP 16; O2SAT 97
[2017-01-02 14:05] LABS: ANION GAP 7 MEQ/L (5-15); BICARBONATE 24.5 MEQ/L (21.0-32.0); BLOOD UREA NITROGEN 30 MG/DL (7-18); CHLORIDE 106 MEQ/L (98-107); GLOMERULAR FILTRATION RATE 65 ML/MIN (>89); SODIUM (NA) 137 MEQ/L (136-145)
[2017-01-02 14:27] LABS: CREATINE KINASE 34 U/L (39-308)
[2017-01-02 14:30] VITALS: BP 125/78; PULSE 82; RESP 18; O2SAT 94
[2017-01-02] MEDS ORDERED: SODIUM CHLOR 0.9% 1000 ML INJ 1,000 ML IV ONE (15:30)
--- NOTE | 2017-01-02 16:26 | RADRPT ---
EXAM DATE/TIME: 01/02/2017 15:52 [facility] COMPARISON: CT BRAIN W/O CONTRAST, December 24, 2016, 14:28. INDICATIONS : Dizziness today. RADIATION DOSE: 39.15 CTDIvol (mGy) MEDICAL HISTORY : Stroke. Renal cell carcinoma. Hypertension. SURGICAL HISTORY : None. ENCOUNTER: Initial ACUITY: 1 day PAIN SCALE: 5/10 LOCATION: Bilateral head TECHNIQUE: Multiple contiguous axial images were obtained of the head. Using automated exposure control and adj ustment of the mA and/or kV according to patient size, radiation dose was kept as low as reasonably a chievable to obtain optimal diagnostic quality images. DICOM format image data is available electro nically for review and comparison. FINDINGS: CEREBRUM: Redemonstration of small left basal ganglia lacunar infarct. There is also a stable small posterior p rior periventricular hypodensity, likely lacunar infarct. The ventricles are normal for age. No evid ence of midline shift, mass lesion, hemorrhage or acute infarction. No extra-axial fluid collections are seen. POSTERIOR FOSSA: Redemonstration of bilateral cerebellar hypodensities. The cerebellum and brainstem are otherwise int act. The 4th ventricle is midline. The cerebellopontine angle is unremarkable. EXTRACRANIAL: The visualized portion of the orbits is intact. SKULL: The calvaria is intact. No evidence of skull fracture. Stable right posterior occipital scalp probab le a resolving hematoma. CONCLUSION: 1. Bilateral cerebellar hypodensities that may reflect old infarcts orbital differential includes met astatic disease. Comparison with the remote prior exams would be beneficial in further evaluation. Alternatively, MRI examination may be performed for better characterization. 2. Stable left basal ganglia lacunar infarct and probable left posterior parietal lacunar infarct. 3. Probable resolving right posterior occipital scalp hematoma. Tomi Bland MD on January 02, 2017 at 16:22 Board Certified Radiologist. This report was verified electronically.
[2017-01-02 16:30] VITALS: BP 118/72; PULSE 80; RESP 16; O2SAT 97
[2017-01-02 18:30] VITALS: BP 124/76; PULSE 79; RESP 18; O2SAT 97
--- NOTE | 2017-01-03 12:45 | EKG ---
Date Performed: 01/02/2017 Time Performed: 12:59:08 PTAGE: 61 years EKG: Sinus rhythm Compared to prior tracing no significant change NORMAL ECG PREVIOUS TRACING : 12/24/2016 14.13 DOCTOR: Swapnil Paulino Interpretating Date/Time 01/03/2017 12:42:10
== END 2017-01-02 18:45 | disposition home or self-care (01) ==
LOC: NEPC 11:55
DX: R42 Dizziness and giddiness (principal); H53.8 Other visual disturbances; R47.81 Slurred speech; R34 Anuria and oliguria; E11.9 Type 2 diabetes mellitus without complications; I10 Essential (primary) hypertension; N19 Unspecified kidney failure; Z79.4 Long term (current) use of insulin; Z79.899 Other long term (current) drug therapy; Z86.79 Personal history of other diseases of the circulatory system; Z87.39 Personal history of other diseases of the musculoskeletal system and connective tissue
CPT/HCPCS: 70450; 80048; 82550; 84484; 85025; 93005; 96360; 96361; 99285; J7030

== ENCOUNTER 2017-10-18 07:09 | Emergency (ER) | payer SELFPAY ==
[~2017-10-18] VITALS: Ht 185.4 cm; Wt 116.0 kg
[~2017-10-18 07:09] MED LIST changes: +ASPI-183 PO; -ASPI325T PO; -CALC600T64; -ERGO1CAP30 PO; +VITA500012 PO
[2017-10-18 07:13] VITALS: BP 152/69; PULSE 73; RESP 16; TEMP 98.3; O2SAT 97
[2017-10-18] MEDS ORDERED: ACETAMINOPHEN/HYDROcodone 325 MG/5 MG TAB PO ONE (07:30)
--- NOTE | 2017-10-18 07:44 | PD ---
HPI . Foot injury Chief Complaint: Injury Time Seen by Provider: 07:21 Travel History International Travel<30 days: No Contact w/Intl Traveler<30days: No Traveled to known affect area: No History of Present Illness HPI Patient presents with a chief complaint of a left foot injury. He states that he was working in his garage yesterday and that it is very cluttered. He states that he tripped and injured his left foot. He goes on to tell me that he sustained in a motel and that he is having to yell at passing neighbors for assistance such as ice. He states that he did ice it. The ice did not help. He states that he took an aspirin yesterday and that it did not help. Pain is exacerbated by walking. Pain is rated 10/10. There were no other associated injuries. He has no associated symptoms PFSH Past Medical History Cardiovascular Problems: Yes (HEART DISEASE) Cerebrovascular Accident: Yes Diabetes: Yes Patient Takes Glucophage: No Diminished Hearing: No Hypertension: Yes Renal Failure: Yes Thyroid Disease: Yes Tetanus Vaccination: Unknown Influenza Vaccination: Yes Past Surgical History Genitourinary Surgery: Yes (right kindey removal([place])) Other Surgery: Yes Social History Alcohol Use: No Tobacco Use: No Substance Use: Yes (occasional marijuana) Allergies-Medications (Allergen,Severity, Reaction): Coded Allergies: ibuprofen (Unverified Allergy, Severe, 10/18/17) i swell up Reported Meds & Prescriptions Reported Meds & Active Scripts Active Simvastatin 40 Mg Tab 40 Mg PO HS Aspirin 325 Mg Tab 325 Mg PO DAILY Calcium 600+D 200 (Calcium Carbonate-Vitamin D) 600-200 Mg-Unit Tab 1 Tab PO BID Reported Hydralazine (Hydralazine HCl) 100 Mg Tab 100 Mg PO BID Take with meals Amlodipine (Amlodipine Besylate) 10 Mg Tab 10 Mg PO DAILY Clonidine (Clonidine HCl) 0.1 Mg Tab 0.1 Mg PO BID Lisinopril 40 Mg Tab 40 Mg PO DAILY Levothyroxine (Levothyroxine Sodium) 25 Mcg Tab 25 Mcg PO DAILY Novolog Inj (Insulin Aspart) 1,000 Unit/10 Ml Vial 0 SQ DIRECTED Sliding Scale as directed. Carvedilol 25 Mg Tab 25 Mg PO BID Carbamazepine 200 Mg Tab 200 Mg PO BID Refresh Plus Unit-Dose 0.5% Opth (Carboxymethylcellulose Sodium 0.5% Opth) 0.5% Drops 1 Drop EACH EYE QID Evaaglar Kwikpen (Insulin Glargine) 100 Unit/Ml Pen 1 Units SQ DAILY Review of Systems Except as stated in HPI: all other systems reviewed are Neg Physical Exam Narrative GENERAL: Awake and alert and in no acute distress. SKIN: Warm and dry. HEAD: Normocephalic/atraumatic. EYES: Pupils are equal. Extraocular movements are intact. NECK: Normal range of motion. CARDIOVASCULAR: Regular rate and rhythm. RESPIRATORY: Nonlabored respirations. MUSCULOSKELETAL: Left ankle and hindfoot do have some swelling. There is no gross deformity. It is diffusely tender to palpation. The ankle is stable. He is distally neurovascularly intact. NEUROLOGICAL: Nonfocal. PSYCHIATRIC: Appropriate mood and affect. Data Data Last Documented VS Vital Signs Date Time Temp Pulse Resp B/P (MAP) Pulse Ox O2 Delivery O2 Flow Rate FiO2 10/18/17 07:13 98.3 73 16 152/69 (96) 97 Orders Orders Foot, Complete ([id number]) (10/18/17 07:23) Ankle, Complete ([id number]) (10/18/17 07:27) Acetamin-Hydrocod 325-5 Mg ([place] 5-325 (10/18/17 07:30) MDM Medical Decision Making Medical Screen Exam Complete: Yes Emergency Medical Condition: Yes Differential Diagnosis Differential diagnosis of extremity trauma includes but is not limited to fracture, sprain or strain, dislocation, contusion Narrative Course This patient presents with a left foot and ankle injury. I have ordered a [place] and x-rays of the left ankle and foot. Diagnosis Primary Impression: Left ankle sprain Qualified Codes: S93.402A - Sprain of unspecified ligament of left ankle, initial encounter Patient Instructions: Ankle Sprain (DC), General Instructions, RICE Therapy (ED ) Med/Other Pt SpecificInfo: Prescription(s) given Scripts Tramadol (Ultram) 50 Mg Tab 50 MG PO Q4H Y for PAIN, #12 TAB 0 Refills Prov: Caroline Smith MD 10/18/17 Disposition: 01 DISCHARGE HOME Condition: Stable Caroline Smith MD Oct 18, 2017 07:44
--- NOTE | 2017-10-18 08:03 | RADRPT ---
EXAM DATE/TIME: 10/18/2017 07:37 [facility] COMPARISON: No previous studies available for comparison. INDICATIONS : Left ankle pain, lateral swelling MEDICAL HISTORY : Diabetes mellitus type II. Stroke. Renal cell carcinoma. Hypertension. SURGICAL HISTORY : None. ENCOUNTER: Initial ACUITY: 1 day PAIN SCORE: 8/10 LOCATION: Left ankle FINDINGS: There is mild soft tissue swelling laterally. Plantar and posterior calcaneal enthesophyte formation is seen. No fractures. CONCLUSION: Mild soft tissue swelling without definite fracture. Tiago Oakley MD on October 18, 2017 at 8:00 Board Certified Radiologist. This report was verified electronically.
--- NOTE | 2017-10-18 08:04 | RADRPT ---
EXAM DATE/TIME: 10/18/2017 07:40 [facility] COMPARISON: ANKLE LEFT COMPLETE ([id number]), October 18, 2017, 7:37. INDICATIONS : Left foot pain with lateral foot and ankle swelling MEDICAL HISTORY : Diabetes mellitus type II. Stroke. Renal cell carcinoma. Hypertension. SURGICAL HISTORY : None. ENCOUNTER: Initial ACUITY: 1 day PAIN SCORE: 8/10 LOCATION: Left foot FINDINGS: Three view examination of the left foot demonstrates no soft tissue swelling, dislocation, or fractur e. The tarsal bones appear intact. The interphalangeal and metatarsophalangeal joints are intact. The calcaneus is intact. Bony mineralization is normal. Plantar and posterior calcaneal enthesophyt es. CONCLUSION: Calcaneal spurs. Tiago Oakley MD on October 18, 2017 at 8:00 Board Certified Radiologist. This report was verified electronically.
[2017-10-18] MEDS ORDERED: TRAM50 PO (08:11)
[2017-10-18 08:28] VITALS: BP 169/81
== END 2017-10-18 08:35 | disposition home or self-care (01) ==
LOC: NEPE 07:09
DX: S93.402A Sprain of unspecified ligament of left ankle, initial encounter (principal); W18.40XA Slipping, tripping and stumbling without falling, unspecified, initial encounter; E11.9 Type 2 diabetes mellitus without complications; I10 Essential (primary) hypertension; I51.9 Heart disease, unspecified; F12.90 Cannabis use, unspecified, uncomplicated; Z85.528 Personal history of other malignant neoplasm of kidney; Z86.73 Personal history of transient ischemic attack (TIA), and cerebral infarction without residual deficits
CPT/HCPCS: 73610; 73630; 99283